=== PATIENT | male | born 1950 | race African-American/Black ===

== ENCOUNTER 2018-01-15 18:35 | Inpatient (IN) | payer MEDICARE ==
[~2018-01-15] VITALS: Ht 182.9 cm; Wt 118.0 kg
--- OUTSIDE RECORDS SUMMARY | 2018-01-15 18:38 | XMS REPORT ---
Author Author [facility] Address Unknown Phone Unavailable Care Team Providers Care Leather Sponger Name Role Phone Unavailable Unavailable Problems This patient has no known problems. Allergies, Adverse Reactions, Alerts This patient has no known allergies or adverse reactions. Medications This patient has no known medications. Encounters Start Date/Time End Date/Time Encounter Type Admission Type Attending [facility] Care Department Encounter ID 2017-07-25 13:39:07 2017-07-25 13:39:07 Outpatient [facility] [id number] 2017-06-30 20:19:00 2017-06-30 20:19:00 Emergency [facility] MED [id number] 2017-04-17 00:00:00 2017-04-17 00:00:00 Outpatient [facility] [id number] 2017-04-05 13:48:32 2017-04-05 13:48:32 Outpatient [facility] [id number]
[2018-01-15] MEDS ORDERED: ASPIRIN 81 MG CHEW TAB PO ONE (19:00)
[2018-01-15 19:10] LABS: BASOPHILS # (AUTO) 0.1 (0.0-0.1); BASOPHILS % 1.1 % (0.0-1.0); EOSINOPHILS % 0.2 % (0.0-6.0); HEMATOCRIT 36.6 % (38.2-49.6); HEMOGLOBIN 11.7 g/dL (14.0-18.0); LYMPHOCYTES # (AUTO) 0.8 (1.0-3.2); LYMPHOCYTES % 12.1 % (18.0-39.1); MEAN CORPUSCULAR HEMOGLOBIN 26.7 pg (28-32); MEAN CORPUSCULAR VOLUME 83.4 fL (81-99); MONOCYTES # (AUTO) 0.5 (0.2-0.8); PLATELET COUNT 233 x10e3/uL (140-360); RED BLOOD COUNT 4.39 x10e6/uL (4.3-5.7); RED CELL DISTRIBUTION WIDTH 17.3 % (11.7-14.4)
[2018-01-15 19:19] LABS: INR 1.59; PROTHROMBIN TIME 17.8 seconds (11.9-14.5)
[2018-01-15 19:28] LABS: ALBUMIN 3.1 g/dL (3.5-5.0); ALBUMIN/GLOBULIN RATIO 0.6 (0.8-2.0); ANION GAP 21.3 mmol/L (8-16); CALCIUM 9.1 mg/dL (8.4-10.2); CREATININE, SERUM 3.01 mg/dL (0.72-1.25); POTASSIUM 3.3 mmol/L (3.5-5.1)
[2018-01-15 19:36] LABS: CREATINE KINASE MB 5.3 ng/mL (0-5.0)
--- NOTE | 2018-01-15 19:53 | Diagnostic Imaging Report ---
EXAMINATION: CHEST SINGLE (PORTABLE) INDICATION: Chest pain. COMPARISON: None FINDINGS: TUBES and LINES: None. LUNGS: Bilateral pulmonary venous congestion. PLEURA: No pleural effusion or pneumothorax. HEART AND MEDIASTINUM: The cardiac silhouette is moderately to markedly enlarged. Enlarged bilateral main pulmonary arteries. BONES AND SOFT TISSUES: No acute osseous lesion. UPPER ABDOMEN: No free air under the diaphragm. IMPRESSION: Congestive heart failure with bilateral pulmonary venous congestion. Signed by: Dr. Bacilio Christina M.D. on 01/15/2018 7:50 PM
--- NOTE | 2018-01-15 19:59 | Diagnostic Imaging Report ---
EXAM: Ultrasound abdomen limited INDICATION: Evaluate for ascites, liver for cirrhosis COMPARISON: None. TECHNIQUE: Transverse and longitudinal images of the 4 quadrants of the abdomen show low evaluate for ascites was performed. FINDINGS: Examination is limited as patient would not lie down due to discomfort. Liver: Appears nodular in contour. Moderate to large volume ascites in the 4 quadrants of the abdomen. IMPRESSION: 1. Moderate to large volume ascites. 2. Partially visualized, nodular hepatic contour. Signed by: Dr. Bacilio Christina M.D. on 01/15/2018 7:55 PM
[2018-01-15] MEDS ORDERED: FUROSEMIDE INJ 10 MG/ML 4 ML VIAL IV ONE (20:15)
[2018-01-15] MEDS ORDERED: TAMSULOSIN HCL0.4 MG PO (20:45)
[2018-01-15] MEDS ORDERED: DOXYCYCLINE HY100 MG PO (20:45)
[2018-01-15] MEDS ORDERED: SPIRONOLACTONE25 MG PO (20:45)
[2018-01-15] MEDS ORDERED: ASPIR 8181 MG PO (20:45)
[2018-01-15] MEDS ORDERED: ATORVASTATIN CA20 MG PO (20:45)
[2018-01-15] MEDS ORDERED: KETOCONAZOLE120 ML (20:45)
[2018-01-15] MEDS ORDERED: METOLAZONE5 MG PO (20:45)
[2018-01-15] MEDS ORDERED: RAMIPRIL5 MG PO (20:45)
[2018-01-15] MEDS ORDERED: SERTRALINE HCL25 MG PO (20:45)
[2018-01-15] MEDS ORDERED: ALLOPURINOL100 MG PO (20:45)
[2018-01-15] MEDS ORDERED: BUMETANIDE1 MG PO (20:45)
[2018-01-15] MEDS ORDERED: METOPROLOL SUCC25 MG PO (20:45)
[2018-01-15] MEDS ORDERED: LORAZEPAM INJ 2 MG/ML VIAL IV ONE (22:00)
[2018-01-15 22:24] LABS: CLARITY,URINE SL CLOUDY (CLEAR); COLOR,URINE YELLOW (YELLOW); LEUKOCYTE ESTERASE ,URINE NEGATIVE (NEGATIVE); NITRITE,URINE NEGATIVE (NEGATIVE); PROTEIN,URINE DIPSTICK 2+ (NEGATIVE)
[2018-01-15 22:25] LABS: BILIRUBIN,URINE 1+ (NEGATIVE); KETONES,URINE NEGATIVE (NEGATIVE); URINE UROBILINOGEN 0.2 mg/dL (0.2 - 1)
[2018-01-15 22:41] LABS: RBC,URINE 21-50 /HPF (0-5)
[2018-01-15 22:42] LABS: AMORPHOUS SEDIMENT,URINE MANY (FEW); BACTERIA,URINE RARE /HPF; EPITHELIAL CELLS,URINE RARE /LPF
[2018-01-15] MEDS: PROPOFOL IV EMULSION 10MG/ML 100 ML IV PRN (23:30)
[2018-01-15] MEDS ORDERED: SUCCINYLCHOLINE 200 MG/10 ML SYR IV STA (23:38)
[2018-01-15] MEDS ORDERED: PROPOFOL IV EMULSION 10MG/ML 100 ML ONE (23:38)
[2018-01-15] MEDS ORDERED: ETOMIDATE 2 MG/ML 10 ML INJ IV STA (23:38)
[2018-01-16] VITALS (120 sets, daily range): BP systolic 62–129; BP diastolic 24–102
--- NOTE | 2018-01-16 00:20 | Diagnostic Imaging Report ---
EXAM: CHEST SINGLE (PORTABLE), AP 1 view INDICATION: Status post intubation COMPARISON: AP view the chest December 15, 2017 FINDINGS: LINES/TUBES: Endotracheal tube terminates approximately 3 cm above the daniel LUNGS: Bilateral vascular congestion PLEURA: No effusions or pneumothorax. HEART AND MEDIASTINUM: Stable enlargement given rotation. BONES AND SOFT TISSUES: No acute findings. IMPRESSION: Interval placement of endotracheal tube that terminates approximately 3 cm above the daniel. Signed by: Dr. Maki Jonas M.D. on 01/16/2018 12:17 AM
[2018-01-16] MEDS: PROPOFOL IV EMULSION 10MG/ML 100 ML IV PRN (05:06)
[2018-01-16 06:39] LABS: CREATINE KINASE MB 4.1 ng/mL (0-5.0)
--- NOTE | 2018-01-16 08:44 | Consultation ---
DATE OF CONSULTATION: REQUESTING PHYSICIAN: Dr. Hoff REASON FOR CONSULTATION: Elevated creatinine. Thank you for allowing us to participate in Mr. Sigala's care. This is a 68-year-old male currently intubated came in with worsening dyspnea, as well as abdominal swelling. Found to have cirrhosis. Currently, is intubated and making very little urine with 80 mg twice daily Lasix. Chest x-ray is also showing fluid overload. Creatinine is about 3. Potassium is slightly low. Blood pressures have been on the low side. It does appear that this may have happened before. Unfortunately, not much history can be obtained. There apparently is a background of CKD, stage 4 based on billing data, but I need to confirm this from records from [facility], which I have requested. PAST HISTORY: Apparently history of cirrhosis, possible CKD, 4, history of fluid overload. In the past, had been on ramipril, spironolactone and Bumex. MEDICATIONS: Currently, please see list. In the past, had been on Bumex, ramipril, spironolactone. ALLERGIES: UNABLE TO OBTAIN. REVIEW OF SYSTEMS: Unable to obtain. FAMILY HISTORY: Unable to obtain as he is intubated. SOCIAL HISTORY: Unable to obtain. PHYSICAL EXAMINATION GENERAL: Laying in ICU bed in no distress. He appears sedated. VITALS: Temperature 96, pulse 72, blood pressure 101/72. CHEST: Scattered crackles. HEENT: Orally intubated. ABDOMEN: Distended. Fluid wave is present. CARDIAC: Normal heart tones. Rhythm sounds good. EXTREMITIES: Plus on the sacrum. NEURO: Appears sedated. Chest x-ray with fluid overload. Last creatinine was 3.1, BUN 53, serum CO2 25, chloride 98, creatinine 3.3, sodium 141. BNP elevated as expected. Globulin is 5. Hemoglobin is 11.7, white count 6.4 and platelets are 233,000. ASSESSMENT: Apparent history of chronic kidney disease, 4, which needs to be confirmed, fluid overload, possible acute kidney injury, mild hypokalemia. Ultrasound not showing any hydronephrosis at this point. Urine is showing some proteinuria and is not bland. There is some hematuria. PLAN: From a renal standpoint, main urgency would be treating the fluid overload so he can breathe better. Will change to Lasix drip. Discussed with staff. Keep low salt intake. Place NG tube. We may need to add some midodrine given the blood pressure issues. Will follow along. Additionally, get records from [facility]. Job#: [id number] KEITH
[2018-01-16] MEDS ORDERED: FUROSEMIDE INJ 10 MG/ML 4 ML VIAL IV SCH (09:00)
[2018-01-16 10:25] LABS: BASOPHILS # (AUTO) 0.1 (0.0-0.1); EOSINOPHILS % 0.4 % (0.0-6.0); HEMATOCRIT 33.1 % (38.2-49.6); HEMOGLOBIN 10.8 g/dL (14.0-18.0); LYMPHOCYTES # (AUTO) 0.9 (1.0-3.2); LYMPHOCYTES % 12.9 % (18.0-39.1); MEAN CORPUSCULAR HEMOGLOBIN 26.5 pg (28-32); MEAN CORPUSCULAR HGB CONC 32.6 g/dL (31-35); MEAN CORPUSCULAR VOLUME 81.3 fL (81-99); MONOCYTES # (AUTO) 0.7 (0.2-0.8); MONOCYTES % 9.8 % (4.4-11.3); NEUTROPHILS # (AUTO) 5.5 (2.1-6.9); NEUTROPHILS % 75.5 % (38.7-80.0); PLATELET COUNT 222 x10e3/uL (140-360); RED BLOOD COUNT 4.07 x10e6/uL (4.3-5.7); RED CELL DISTRIBUTION WIDTH 17.1 % (11.7-14.4)
[2018-01-16 10:39] LABS: ALBUMIN 2.7 g/dL (3.5-5.0); ALBUMIN/GLOBULIN RATIO 0.7 (0.8-2.0); ANION GAP 17.2 mmol/L (8-16); CALCIUM 8.6 mg/dL (8.4-10.2); CREATININE, SERUM 3.21 mg/dL (0.72-1.25); POTASSIUM 3.2 mmol/L (3.5-5.1)
--- NOTE | 2018-01-16 11:17 | Consultation ---
DATE OF CONSULTATION: PULMONARY/CRITICAL CARE CONSULTATION REASON FOR CONSULTATION: ICU management and ventilator management. HPI: Mr. Sigala is a 68-year-old male. The patient is currently sedated, and the source of history is the chart. There is no previous admission here. The ER note suggests the patient was having shortness of breath. He was on BiPAP and became completely agitated, confused and hypoxic. The patient was intubated in the emergency room. He has severe bilateral pedal edema and ascites, which is visible on exam. He has renal failure. Nephrology has already seen the patient. Per the ER report, the patient was at [facility] a few days ago. In the emergency room, the patient had a blood gas per ER physician report; however, I do not see any blood gas in the computer. He was intubated. He was initially placed on BiPAP, and I was told that he was hypercapnic and did not respond, so he was intubated. PAST MEDICAL HISTORY: History of chronic kidney disease, fluid overload. Apparently it appears the patient probably has history of congestive heart failure, and ascites can be due to congestive heart failure versus primary liver problem. INR is 1.59. REVIEW OF SYSTEMS: Unable to elicit. The patient is sedated and intubated. PAST SURGICAL HISTORY: Unknown. FAMILY AND SOCIAL HISTORY: Unknown as the patient is intubated and sedated, and no record is available. PHYSICAL EXAMINATION VITAL SIGNS: Temperature 96.6, pulse of 73, blood pressure 101/72. He is on propofol. Vent settings reviewed. He was on 70% FIO2 with a PEEP of 5. SKIN: Warm and dry. HEENT: Head atraumatic, normocephalic. Pupils are reactive. CHEST: Decreased air entry on the bases. ABDOMEN: Distended. Ascites. EXTREMITIES: Bilateral pedal edema and chronic skin changes, 4+ pedal edema. NEUROLOGIC: Sedated, intubated. LABS: INR is 1.59. Chemistry: Sodium 141, potassium 3.3, chloride 98. BUN 53 and creatinine 3.1. AST and ALT normal. BNP 3589.3. White count of 6.46, hemoglobin 11.7, platelets 233. CHEST X-RAY: I have reviewed the images, showing cardiomegaly, possible left lower lobe infiltrate and pulmonary venous congestion. ASSESSMENT AND PLAN: Mr. Sigala is a 68-year-old male who presented with worsening shortness of breath, hypoxia, possible hypercapnia. There is no ABG in the computer; however, I was given verbal report by the ER. Patient is on mechanical ventilator. Clinical exam and labs suggest the patient probably has congestive heart failure, which is untreated and decompensated. Ascites is likely due to congestive heart failure as the INR is normal and AST and ALT are normal as well. CURRENT PROBLEMS 1. Acute and chronic congestive heart failure, no echocardiogram available. 2. Acute hypoxic respiratory failure. 3. Ascites and bilateral pedal edema. 4. Chronic kidney disease versus [id number] kidney injury. 5. Altered mental status, likely was because of hypoxia in the emergency room. 6. Mild anemia. PLAN 1. Will discontinue propofol and start Versed. 2. Ventilator settings reviewed at bedside. Titrated the FiO2 down to 65%. Patient is saturating 100%. I have increased the PEEP to 8. 3. Will send off endotracheal aspirate. Patient had recent hospitalization. Pneumonia cannot be ruled out. I will start the patient on Zosyn. 4. High likelihood of congestive heart failure on the clinical exam. Will do a stat echocardiogram. Recommend cardiology evaluation. 5. Central line placement. 6. Paracentesis has been requested for the ascites. Will send off the albumin and cell count on the ascitic fluid. 7. Nephrology consultation has been called. The patient is on diuretics and now on Lasix drip. 8. Start the patient on DVT prophylaxis with heparin subcutaneous 5,000 units b.i.d. as patient has renal failure. 9. Start the patient on GI prophylaxis with famotidine. Critical care time spent 50 minutes. Job#: [id number]
[2018-01-16] MEDS ORDERED: MIDAZOLAM HCL 25 MG in DEXTROSE 5% 50ML 45 ML IV PRN (11:30)
[2018-01-16] MEDS: MIDAZOLAM HCL 25 MG in SODIUM CHLORIDE 0.9% 45 ML IV PRN ×3 (12:05→20:41)
--- NOTE | 2018-01-16 13:28 | Diagnostic Imaging Report ---
PROCEDURE:CHEST XRAY LINE PLACEMENT TECHNIQUE:Portable AP chest INDICATION:Line placement COMPARISON:Patients [facility], DX, CHEST SINGLE (PORTABLE), 01/15/2018, 23:59. FINDINGS: See conclusion. CONCLUSION: 1. Right internal jugular central venous catheter with the atrial caval junction. 2. Nasogastric tube tip crossing the diaphragm off the inferior margin of the radiograph. 3. Cardiomegaly with pulmonary edema. No pneumothorax. 4. Trace pleural effusions (left greater than right). 5. Grossly intact skeleton. Dictated by: Olvin Salcedo M.D. on 01/16/2018 at 13:30 Electronically approved by: Olvin Salcedo M.D. on 01/16/2018 at 13:30
--- NOTE | 2018-01-16 13:31 | Diagnostic Imaging Report ---
PROCEDURE:ABDOMEN-1VIEW (KUB) TECHNIQUE:Supine AP abdomen INDICATION:Nasogastric tube placement COMPARISON:None. FINDINGS: See conclusion. CONCLUSION: 1. Nasogastric tube tip at gastric body. 2. Grossly nonobstructive bowel gas pattern. Dictated by: Olvin Salcedo M.D. on 01/16/2018 at 13:32 Electronically approved by: Olvin Salcedo M.D. on 01/16/2018 at 13:32
--- NOTE | 2018-01-16 13:37 | Diagnostic Imaging Report ---
Ultrasound-guided paracentesis 01/16/2018 Pre-Procedure Diagnosis: Symptomatic ascites Post-procedure Diagnosis:Symptomatic ascites Ring Striker: Jem Salcedo Bonderite Operator: None Sedation: None. 1% lidocaine local anesthesia. Estimate blood loss: <5 mL Blood administered: None Complications: None Implants/Grafts: None Specimen: 1200 mL ascites Procedure: Informed consent was obtained and the patient placed supine in the ICU. A time out was performed, followed by four-quadrant preliminary ultrasound of the abdomen. The right lower quadrant was prepped and draped in standard sterile fashion. Using real-time ultrasound guidance a 7-Norwegian one-step centesis needle was advanced into the peritoneal cavity. An image was stored in the electronic medical record. 6050 mL serous fluid was aspirated. At the end of the procedure the catheter was removed and a sterile dressing applied. The patient tolerated the procedure well. No complications. Findings: Large volume ascites. Impression: Successful ultrasound-guided paracentesis with removal of 6050 mL of ascites. Samples were submitted for evaluation if requested by the referring clinician. This report was generated with voice-recognition technology. Errors in contract paralegal can occur. Please interpret accordingly and contact a radiologist if there are any questions regarding the report. Signed by: Dr. Olvin Salcedo M.D. on 01/16/2018 1:33 PM
--- NOTE | 2018-01-16 13:37 | Diagnostic Imaging Report ---
Ultrasound-guided paracentesis 01/16/2018 Pre-Procedure Diagnosis: Symptomatic ascites Post-procedure Diagnosis:Symptomatic ascites Geographic Area Intelligence Officer: Jem Salcedo Smoke And Flame Specialist: None Sedation: None. 1% lidocaine local anesthesia. Estimate blood loss: <5 mL Blood administered: None Complications: None Implants/Grafts: None Specimen: 1200 mL ascites Procedure: Informed consent was obtained and the patient placed supine in the ICU. A time out was performed, followed by four-quadrant preliminary ultrasound of the abdomen. The right lower quadrant was prepped and draped in standard sterile fashion. Using real-time ultrasound guidance a 7-Argentine one-step centesis needle was advanced into the peritoneal cavity. An image was stored in the electronic medical record. 6050 mL serous fluid was aspirated. At the end of the procedure the catheter was removed and a sterile dressing applied. The patient tolerated the procedure well. No complications. Findings: Large volume ascites. Impression: Successful ultrasound-guided paracentesis with removal of 6050 mL of ascites. Samples were submitted for evaluation if requested by the referring clinician. This report was generated with voice-recognition technology. Errors in personnel placement specialist can occur. Please interpret accordingly and contact a radiologist if there are any questions regarding the report. Signed by: Dr. Olvin Salcedo M.D. on 01/16/2018 1:33 PM
--- NOTE | 2018-01-16 14:19 | Diagnostic Imaging Report ---
Non-tunneled Central Venous Catheter Placement 01/16/2018 Pre-Procedure Diagnosis: Multiorgan failure Post-procedure Diagnosis:Multiorgan failure Tree Surgeon: Jem Salcedo Music Mixer: None Sedation: None. 1% lidocaine local anesthesia. Estimate blood loss: <5 mL Blood administered: None Complications: None Implants/Grafts: 16 cm 7-Upper Sorbian 3 lumen CVC Specimen: None Procedure: Informed consent was obtained and the patient positioned supine in the ICU. A timeout was performed, followed by preliminary ultrasound of the right internal jugular vein (see findings below). The right neck was prepped and draped in standard fashion. Using real-time ultrasound guidance a 18 gauge vascular needle was used to access the right internal jugular vein. An image was stored in the electronic medical record. A wire was advanced while monitoring the patient's cardiac rhythm and the needle exchanged for a non-tunneled central venous catheter using standard Salinger technique. At the end of the procedure the catheter was flushed, secured to the skin and a sterile dressing applied. The patient tolerated the procedure well and without immediate complication. Findings: Patent right internal jugular vein as demonstrated by normal ultrasound compressibility. Impression: Successful placement of a non-tunneled right internal jugular central venous catheter using ultrasound guidance. This report was generated with voice-recognition technology. Errors in boilermaker central steam plant can occur. Please interpret accordingly and contact a radiologist if there are any questions regarding the report. Signed by: Dr. Olvin Salcedo M.D. on 01/16/2018 2:16 PM
--- NOTE | 2018-01-16 14:19 | Diagnostic Imaging Report ---
Non-tunneled Central Venous Catheter Placement 01/16/2018 Pre-Procedure Diagnosis: Multiorgan failure Post-procedure Diagnosis:Multiorgan failure Electronic Assembler: Jem Salcedo Customer Operations Intern: None Sedation: None. 1% lidocaine local anesthesia. Estimate blood loss: <5 mL Blood administered: None Complications: None Implants/Grafts: 16 cm 7-Telugu 3 lumen CVC Specimen: None Procedure: Informed consent was obtained and the patient positioned supine in the ICU. A timeout was performed, followed by preliminary ultrasound of the right internal jugular vein (see findings below). The right neck was prepped and draped in standard fashion. Using real-time ultrasound guidance a 18 gauge vascular needle was used to access the right internal jugular vein. An image was stored in the electronic medical record. A wire was advanced while monitoring the patient's cardiac rhythm and the needle exchanged for a non-tunneled central venous catheter using standard Salinger technique. At the end of the procedure the catheter was flushed, secured to the skin and a sterile dressing applied. The patient tolerated the procedure well and without immediate complication. Findings: Patent right internal jugular vein as demonstrated by normal ultrasound compressibility. Impression: Successful placement of a non-tunneled right internal jugular central venous catheter using ultrasound guidance. This report was generated with voice-recognition technology. Errors in lead pastor can occur. Please interpret accordingly and contact a radiologist if there are any questions regarding the report. Signed by: Dr. Olvin Salcedo M.D. on 01/16/2018 2:16 PM
--- NOTE | 2018-01-16 14:23 | Diagnostic Imaging Report ---
Non-tunneled Central Venous Catheter Placement 01/16/2018 Pre-Procedure Diagnosis: Multiorgan failure Post-procedure Diagnosis:Multiorgan failure Study Abroad Coordinator: Jem Salcedo Tan Room Supervisor: None Sedation: None. 1% lidocaine local anesthesia. Estimate blood loss: <5 mL Blood administered: None Complications: None Implants/Grafts: 16 cm 7-Turkmen 3 lumen CVC Specimen: None Procedure: Informed consent was obtained and the patient positioned supine in the ICU. A timeout was performed, followed by preliminary ultrasound of the right internal jugular vein (see findings below). The right neck was prepped and draped in standard fashion. Using real-time ultrasound guidance a 18 gauge vascular needle was used to access the right internal jugular vein. An image was stored in the electronic medical record. A wire was advanced while monitoring the patient's cardiac rhythm and the needle exchanged for a non-tunneled central venous catheter using standard Salinger technique. At the end of the procedure the catheter was flushed, secured to the skin and a sterile dressing applied. The patient tolerated the procedure well and without immediate complication. Findings: Patent right internal jugular vein as demonstrated by normal ultrasound compressibility. Impression: Successful placement of a non-tunneled right internal jugular central venous catheter using ultrasound guidance. This report was generated with voice-recognition technology. Errors in pineapple plantation manager can occur. Please interpret accordingly and contact a radiologist if there are any questions regarding the report. Signed by: Dr. Olvin Salcedo M.D. on 01/16/2018 2:19 PM
[2018-01-16] MEDS: PIPER-TAZ 3.375 GM 50 ML IV SCH ×2 (14:32→20:10)
[2018-01-16] MEDS: FAMOTIDINE 20 MG/2 ML VIAL IV SCH (14:32)
--- NOTE | 2018-01-16 14:32 | Consultation ---
DATE OF CONSULTATION: January 16, 2018 CARDIAC CONSULTATION REASON FOR THE CONSULTATION: Congestive heart failure. HISTORY: Source of information is patient medical record, nursing staff. Patient is intubated, on ventilator. Apparently a 68-year-old gentleman who was recently at another hospital, seems to be [facility]. He was there for several days. He was diagnosed with chronic renal insufficiency, liver cirrhosis and congestive heart failure. He was dismissed on megadose of diuretics. Despite all of that, patient continued to have worsening shortness of breath, marked ascites and edema of the lower extremities. Patient came to this institution yesterday where he was in severe respiratory distress and hypoxemic. He needed to be intubated and placed on ventilator. Patient also had large-volume paracentesis by Interventional Radiology. He had central line. Patient intubated, on ventilator. He was seen by Critical Care/Pulmonary as well as by Renal. Patient was started on IV Lasix drip. His BUN and creatinine at 56 and 3.2. His BNP was elevated at 4350. His chest x-ray was showing cardiomegaly, pulmonary congestion. REVIEW OF SYSTEMS: Unable to get. SOCIAL HISTORY: Patient's sister usually visits him as per staff. He does have good family support. PAST MEDICAL HISTORY 1. Hypertension. 2. Congestive heart failure. 3. Gout. 4. Chronic renal insufficiency. 5. Liver cirrhosis. 6. Morbid obesity. 7. Debility and becoming more and more dependent on family for his care. HOME MEDICATION: Long list including allopurinol 100 mg a day, Lipitor 80 mg a day, aspirin 81 mg a day, Bumex 2 mg t.i.d., Zaroxolyn 2.5 mg a day, Aldactone 25 mg a day, metoprolol XL 25 mg a day, ramipril 2.5 mg a day, Flomax 0.4 mg a day. ALLERGIES: NONE. FAMILY HISTORY: Unable to get. HOSPITAL MEDICATIONS: Following admission, patient is on Zosyn, Lasix IV drip and on ventilator. PHYSICAL EXAMINATION VITAL SIGNS: Height of 5 feet 11 inches, weight of 320 pounds, blood pressure 90/60, heart rate of 70, respiratory rate ventilator rate. HEENT: Patient is sedated, on ventilator, intubated. NECK: Short neck. Difficult to assess jugular venous pulsation. CHEST: Bilateral crackles and rales. HEART: Right and left ventricular heaves are noted with ejection systolic murmur and pansystolic murmur over the left sternal border. ABDOMEN: Marked ascites. EXTREMITIES: Lower extremity marked edema with chronic skin changes. NEUROLOGIC: Patient is intubated, on ventilator. LAB DATA: White blood cell count of 6.5, hemoglobin of 11.7, hematocrit 37%, platelet count of 233,000. BUN of 56, creatinine of 3.2. BNP of 4350. INR of 1.6, PT of 17 seconds, PTT of 34 seconds. Chest x-ray showing cardiomegaly, chronic lung changes. IMPRESSION AND PLAN 1. Multisystem failure. 2. Liver cirrhosis. 3. Congestive heart failure. 4. Chronic renal insufficiency. 5. Debility. 6. Obesity. Patient definitely in respiratory failure. It is multifactorial. Care will be supportive. Will try to get his records from the other hospital if visible. Will review the echocardiogram once it is done. Will continue patient's care and follow up with you. Prognosis is very guarded since patient having this problem for some time; and, furthermore, he was on megadose treatment and he is not improving. Case discussed with the nursing staff. Job#: [id number] HAILEY
[2018-01-16 14:33] LABS: BODY FLUID APPEARANCE SL.CLOUDY; BODY FLUID COLOR YELLOW; BODY FLUID TYPE PERITONEAL
[2018-01-16] MEDS: HEPARIN SOD (PORCINE) 5,000 UNIT/ML VIAL SC SCH ×2 (14:35→20:47)
[2018-01-16 14:42] LABS: GLUCOSE,BODY FLUID 97 mg/dL
[2018-01-16] MEDS ORDERED: SODIUM CHLORIDE 0.9% 250ML 250 ML ONE (14:45)
[2018-01-16 14:46] LABS: ABG HCO3 29 mmol/L (23-28); ABG PCO2 39 mmHg (41-51); ABG PH 7.47 (7.31-7.41); ABG PO2 82 mmHg (80-105)
[2018-01-16 14:52] LABS: RBC,BODY FLUID 141 cells/uL; WBC,BODY FLUID 66 cells/uL
[2018-01-16 15:12] LABS: LYMPHOCYTES,BODY FLUID 9 %; MONO/MACROPHG,BODY FLUID 23 %; NEUTROPHILS,BODY FLUID 68 %
[2018-01-16 15:17] LABS: CREATINE KINASE MB 3.7 ng/mL (0-5.0)
[2018-01-16] MEDS: FUROSEMIDE INJ 100 MG in SODIUM CHLORIDE 0.9% 100 ML 90 ML IV SCH (16:00)
--- NOTE | 2018-01-16 16:55 | Diagnostic Imaging Report ---
EXAM: Renal Ultrasound INDICATION: \S\arf/creatine of 3.01 COMPARISON: None. TECHNIQUE: Transverse and longitudinal images of the kidneys and bladder were obtained. FINDINGS: Right Kidney: Size: 11 cm Echogenicity: Increased Parenchymal thickness: Normal Collecting system: No hydronephrosis Stones: None Cyst/Mass: 10.9 x 7.7 x 10.1 cm anechoic cyst, extending from lateral inferior pole. Left Kidney: Evaluation is limited due to large body habitus and inability to follow breathing instructions. Size: 11.1 cm Echogenicity: Increased Parenchymal thickness: Normal Collecting system: No hydronephrosis Stones: None Cyst/Mass: None Bladder: Collapsed by a Dumas catheter in place. IMPRESSION: 10.9 cm simple appearing exophytic cyst, extending from lateral right inferior pole. Increased renal parenchymal echogenicity, suggestive of medical renal disease. Signed by: Dr. Jose Luis Crews MD on 01/16/2018 4:51 PM
--- NOTE | 2018-01-16 19:45 | History and Physical ---
HISTORY OF PRESENT ILLNESS: This 68-year-old male comes in with shortness of breath and also abdominal pain. The patient came into the emergency room yesterday and was found to have increased abdominal girth, increased shortness of breath. The patient was agitated in the ER and with his agitation getting worse and with respiratory failure getting worse, the patient was intubated and put into the ICU. The patient apparently had pain, given lots of medication from the [facility], according to the ER physician, but he had old prescriptions and failure to take the medications and, therefore, his swelling and edema continued to get worse. The patient comes in with respiratory failure. PAST MEDICAL HISTORY: History of hypertension, history of cirrhosis of the liver, history of chronic renal insufficiency, history of congestive heart failure, history of gout and history of morbid obesity. HOME MEDICATIONS: Zaroxolyn 2.5, metoprolol 25, Ramipril 2.5, Aldactone 25, Bumex 2 mg 3 times a day, atorvastatin 80 mg, allopurinol 100 mg, Flomax 0.4 mg. ALLERGIES: NOT ABLE TO GET. FAMILY HISTORY: Unable to get. REVIEW OF SYSTEMS: Unable to get. The patient is intubated. PHYSICAL EXAMINATION GENERAL: The patient is intubated. VITAL SIGNS: Weight 320 pounds, blood pressure trending in the low 90s/60s. HEENT: Intubated. NECK: No JVD present at this time. CHEST: Bilateral crackles and rales. HEART: Distant. Ejection systolic murmur present in the left sternal border. ABDOMEN: Umbilical hernia with marked ascites and fluid thrill. EXTREMITIES: Lower extremity edema with chronic trophic changes and also onychomycosis. NEUROLOGIC: Unable to assess. The patient is intubated. LABORATORY DATA: Initial white count was 6.46, hemoglobin 11.7, hematocrit 36.6. No left shift present. Lymphocytes 12.2. Chemistry: Sodium 140, potassium 3.2, BUN 56 with creatinine of 3.2. CK was elevated. Troponins have been low trending. BNP was 4354. Albumin, globulin and alkaline was 0.7. Immunologically, CANDACE screen is pending. Antimicrobial antibody is also pending. PT 17.89, INR 1.5. Urine did show some rare bacteria, nitrite negative and blood was 2 positive. The patient had a tap today and fluid was yellow, cloudy. White count was 66. RBCs 141. Neutrophil count was 68. LDH was 103 and glucose was 97. Culture is pending. ASSESSMENT: 1. Nulyv-kw-[id number] congestive heart failure. 2. Cirrhosis of the liver. 3. Acute respiratory failure, hypoxic. 4. Acute kidney injury on chronic kidney injury. 5. Altered mental status changes. 6. Anemia. 7. History of gout and hypertension. PLAN: Continue with current medication. The patient has been started on Zosyn. Clinical setting as per critical care and pulmonology. The patient's echocardiogram has been run. Will go ahead and review it. Central line placement has been done. Paracentesis has been done. Nephrology consult has put the patient on IV Lasix drip. DVT prophylaxis has also been done, although his INR is 1.2, so will have to watch his INR. GI prophylaxis has also been ordered. Further recommendations depending on clinical course. Will continue to monitor the patient and will try to get in touch with the family to get more records and more history from him. Job#: [id number]
[2018-01-17] VITALS (104 sets, daily range): BP systolic 67–132; BP diastolic 30–103
[2018-01-17] MEDS: MIDAZOLAM HCL 25 MG in SODIUM CHLORIDE 0.9% 45 ML IV PRN ×3 (03:14→14:31)
[2018-01-17] MEDS: PIPER-TAZ 3.375 GM 50 ML IV SCH ×3 (05:01→21:56)
[2018-01-17 06:10] LABS: BASOPHILS # (AUTO) 0.1 (0.0-0.1); BASOPHILS % 0.6 % (0.0-1.0); EOSINOPHILS % 0.2 % (0.0-6.0); HEMATOCRIT 33.2 % (38.2-49.6); HEMOGLOBIN 10.7 g/dL (14.0-18.0); LYMPHOCYTES # (AUTO) 0.6 (1.0-3.2); LYMPHOCYTES % 6.7 % (18.0-39.1); MEAN CORPUSCULAR HEMOGLOBIN 26.3 pg (28-32); MEAN CORPUSCULAR HGB CONC 32.2 g/dL (31-35); MEAN CORPUSCULAR VOLUME 81.6 fL (81-99); MONOCYTES # (AUTO) 0.7 (0.2-0.8); MONOCYTES % 7.2 % (4.4-11.3); NEUTROPHILS # (AUTO) 7.7 (2.1-6.9); PLATELET COUNT 215 x10e3/uL (140-360); RED BLOOD COUNT 4.07 x10e6/uL (4.3-5.7); RED CELL DISTRIBUTION WIDTH 17.1 % (11.7-14.4)
[2018-01-17 06:32] LABS: ALBUMIN 2.3 g/dL (3.5-5.0); ALBUMIN/GLOBULIN RATIO 0.6 (0.8-2.0); ANION GAP 16.8 mmol/L (8-16); CALCIUM 8.4 mg/dL (8.4-10.2); CREATININE, SERUM 3.18 mg/dL (0.72-1.25); MAGNESIUM 1.4 MG/DL (1.3-2.1); PHOSPHORUS 4.8 MG/DL (2.3-4.7)
[2018-01-17 06:38] LABS: POTASSIUM 2.8 mmol/L (3.5-5.1)
[2018-01-17] MEDS ORDERED: POTASSIUM CHL 40 MEQ in SODIUM CHLORIDE 0.9% 250ML 230 ML IV PRN (07:00)
[2018-01-17] MEDS ORDERED: POTASSIUM CHLORIDE 10MEQ/100ML 400 ML INJ PRN (07:00)
[2018-01-17] MEDS: POTASSIUM CHLORIDE 20MEQ/100ML 200 ML IV PRN ×2 (07:34→18:28)
[2018-01-17] MEDS ORDERED: FUROSEMIDE INJ 10 MG/ML 10 ML VIAL ONE (08:09)
[2018-01-17] MEDS ORDERED: SODIUM CHLORIDE 0.9% 50ML 0 ML ONE (08:10)
[2018-01-17] MEDS: FAMOTIDINE 20 MG/2 ML VIAL IV SCH (08:12)
[2018-01-17] MEDS: HEPARIN SOD (PORCINE) 5,000 UNIT/ML VIAL SC SCH ×2 (08:17→21:56)
[2018-01-17] MEDS: MUPIROCIN 2% OINT 22 GM TUBE TOP SCH (08:25)
[2018-01-17] MEDS: FUROSEMIDE INJ 100 MG in SODIUM CHLORIDE 0.9% 100 ML 90 ML IV SCH (08:25)
[2018-01-17] MEDS ORDERED: ALBUMIN 5% 250ML IV ONE (10:15)
[2018-01-17] MEDS ORDERED: ALBUMIN 5% 1,000 ML IV ONE (10:30)
[2018-01-17] MEDS ORDERED: METOCLOPRAMIDE HCL 10 MG/2ML VIAL ONE (10:44)
--- NOTE | 2018-01-17 14:22 | Diagnostic Imaging Report ---
PROCEDURE: A single AP view of the chest. COMPARISON: Chest radiograph 01/16/2018. INDICATIONS: INTUBATED FINDINGS: See impression. IMPRESSION: 1. Lines: * ET tube tip projects approximately 2 cm above the daniel. * Right internal jugular central venous catheter projects over the upper right atrium. * Nasogastric tube tip courses below the diaphragm, extending out of the field of view. 2. Cardiomegaly with pulmonary edema. No pneumothorax. 3. Stable trace pleural effusions, left greater than right. Dictated by: Prasanna Saleh M.D. on 01/17/2018 at 14:23 Electronically approved by: Prasanna Saleh M.D. on 01/17/2018 at 14:23
[2018-01-17 15:08] LABS: CLARITY,URINE CLEAR (CLEAR); COLOR,URINE YELLOW (YELLOW); LEUKOCYTE ESTERASE ,URINE NEGATIVE (NEGATIVE); NITRITE,URINE NEGATIVE (NEGATIVE)
[2018-01-17 15:09] LABS: BILIRUBIN,URINE NEGATIVE (NEGATIVE); EPITHELIAL CELLS,URINE FEW /LPF; KETONES,URINE NEGATIVE (NEGATIVE); PROTEIN,URINE DIPSTICK TRACE (NEGATIVE); RBC,URINE 0-5 /HPF (0-5); URINE UROBILINOGEN 0.2 mg/dL (0.2 - 1); WBC,URINE (MAN) 0-5 /HPF (0-5)
[2018-01-17 15:10] LABS: MUCUS,URINE FEW (RARE)
[2018-01-18] VITALS (93 sets, daily range): BP systolic 67–133; BP diastolic 48–96
[2018-01-18] MEDS: FUROSEMIDE INJ 100 MG in SODIUM CHLORIDE 0.9% 100 ML 90 ML IV SCH ×2 (03:00→04:00)
[2018-01-18] MEDS: MIDAZOLAM HCL 25 MG in SODIUM CHLORIDE 0.9% 45 ML IV PRN ×4 (04:50→09:27)
[2018-01-18] MEDS: PIPER-TAZ 3.375 GM 50 ML IV SCH ×3 (04:50→20:30)
[2018-01-18 06:18] LABS: BASOPHILS # (AUTO) 0.1 (0.0-0.1); BASOPHILS % 0.6 % (0.0-1.0); EOSINOPHILS # (AUTO) 0.1 (0.0-0.4); EOSINOPHILS % 0.8 % (0.0-6.0); HEMATOCRIT 33.7 % (38.2-49.6); HEMOGLOBIN 10.8 g/dL (14.0-18.0); LYMPHOCYTES # (AUTO) 0.7 (1.0-3.2); LYMPHOCYTES % 7.8 % (18.0-39.1); MEAN CORPUSCULAR HEMOGLOBIN 26.7 pg (28-32); MEAN CORPUSCULAR VOLUME 83.2 fL (81-99); MONOCYTES # (AUTO) 0.7 (0.2-0.8); MONOCYTES % 8.1 % (4.4-11.3); NEUTROPHILS # (AUTO) 7.4 (2.1-6.9); NEUTROPHILS % 82.3 % (38.7-80.0); PLATELET COUNT 199 x10e3/uL (140-360); RED BLOOD COUNT 4.05 x10e6/uL (4.3-5.7); RED CELL DISTRIBUTION WIDTH 17.3 % (11.7-14.4)
[2018-01-18] MEDS ORDERED: POTASSIUM CHLORIDE 20MEQ/100ML 200 ML IV ONE (06:45)
[2018-01-18 06:55] LABS: CALCIUM 8.8 mg/dL (8.4-10.2); CREATININE, SERUM 3.09 mg/dL (0.72-1.25)
[2018-01-18 07:10] LABS: MAGNESIUM 1.4 MG/DL (1.3-2.1); PHOSPHORUS 3.9 MG/DL (2.3-4.7)
--- NOTE | 2018-01-18 07:56 | Diagnostic Imaging Report ---
EXAM: CHEST SINGLE (PORTABLE) 01/18/2018 at 6:23 AM INDICATION: Dyspnea COMPARISON: 01/17/2018 FINDINGS: Single portable AP view of the chest. Visualized bones, soft tissues and cardiomediastinal silhouette appear unchanged. IMPRESSION: 1. Lines/tubes: Right IJ central line, endotracheal tube and nasogastric tube are again noted remaining in appropriate position. 2. Heart is enlarged. There is slight improvement in the pulmonary edema. Left pleural effusion again noted. Signed by: Dr. Trung Mckenzie DO on 01/18/2018 7:53 AM
[2018-01-18] MEDS: FAMOTIDINE 20 MG/2 ML VIAL IV SCH (09:01)
[2018-01-18] MEDS: HEPARIN SOD (PORCINE) 5,000 UNIT/ML VIAL SC SCH ×2 (09:01→20:30)
[2018-01-18] MEDS: GENTAMICIN SULFATE 0.3% OP 5 ML BTL OP SCH ×3 (09:01→23:00)
[2018-01-18] MEDS: MUPIROCIN 2% OINT 22 GM TUBE TOP SCH (09:01)
[2018-01-18] MEDS ORDERED: SODIUM CHLORIDE 0.9% 250ML 250 ML ONE (09:05)
[2018-01-18 16:09] LABS: ABG HCO3 31 mmol/L (23-28); ABG PCO2 41 mmHg (41-51); ABG PH 7.48 (7.31-7.41); ABG PO2 68 mmHg (80-105)
[2018-01-18] MEDS ORDERED: HYDROMORPHONE 20MG/ NS 100ML IV SCH (16:45)
[2018-01-18] MEDS ORDERED: HYDROMORPHONE 100 ML IV PRN (17:00)
[2018-01-19] VITALS (101 sets, daily range): BP systolic 75–117; BP diastolic 48–95
[2018-01-19 00:20] LABS: ANION GAP 19.4 mmol/L (8-16); CREATININE, SERUM 3.04 mg/dL (0.72-1.25); MAGNESIUM 1.3 MG/DL (1.3-2.1); PHOSPHORUS 3.5 MG/DL (2.3-4.7); POTASSIUM 3.4 mmol/L (3.5-5.1)
[2018-01-19] MEDS: PIPER-TAZ 3.375 GM 50 ML IV SCH ×3 (04:50→20:04)
[2018-01-19] MEDS: GENTAMICIN SULFATE 0.3% OP 5 ML BTL OP SCH ×3 (05:30→22:00)
[2018-01-19 05:59] LABS: BASOPHILS # (AUTO) 0.1 (0.0-0.1); BASOPHILS % 0.5 % (0.0-1.0); EOSINOPHILS # (AUTO) 0.1 (0.0-0.4); EOSINOPHILS % 0.7 % (0.0-6.0); HEMATOCRIT 35.3 % (38.2-49.6); HEMOGLOBIN 11.1 g/dL (14.0-18.0); LYMPHOCYTES # (AUTO) 0.8 (1.0-3.2); MEAN CORPUSCULAR HEMOGLOBIN 26.4 pg (28-32); MEAN CORPUSCULAR HGB CONC 31.4 g/dL (31-35); MONOCYTES # (AUTO) 0.8 (0.2-0.8); MONOCYTES % 7.8 % (4.4-11.3); NEUTROPHILS # (AUTO) 8.2 (2.1-6.9); NEUTROPHILS % 82.6 % (38.7-80.0); PLATELET COUNT 212 x10e3/uL (140-360); RED CELL DISTRIBUTION WIDTH 17.8 % (11.7-14.4)
--- NOTE | 2018-01-19 06:15 | Diagnostic Imaging Report ---
EXAM: CHEST SINGLE (PORTABLE), AP 1 view INDICATION: Intubated COMPARISON: AP view of the chest January 18, 2018 FINDINGS: LINES/TUBES: Stable position of endotracheal tube, nasal/orogastric tube and right subclavian central line. LUNGS: Persistent pulmonary edema and bibasilar atelectasis. PLEURA: Bilateral layering pleural effusions. HEART AND MEDIASTINUM: Stable enlargement. BONES AND SOFT TISSUES: No acute findings. IMPRESSION: No interval change. Signed by: Dr. Maki Jonas M.D. on 01/19/2018 6:12 AM
[2018-01-19 06:18] LABS: MAGNESIUM 1.3 MG/DL (1.3-2.1); PHOSPHORUS 3.8 MG/DL (2.3-4.7)
[2018-01-19 06:28] LABS: ALBUMIN 2.4 g/dL (3.5-5.0); ALBUMIN/GLOBULIN RATIO 0.6 (0.8-2.0); CALCIUM 8.8 mg/dL (8.4-10.2); CREATININE, SERUM 2.99 mg/dL (0.72-1.25)
[2018-01-19] MEDS ORDERED: POTASSIUM CHLORIDE 20MEQ/100ML 100 ML IV ONE (07:00)
[2018-01-19] MEDS: FAMOTIDINE 20 MG/2 ML VIAL IV SCH (08:42)
[2018-01-19] MEDS: HEPARIN SOD (PORCINE) 5,000 UNIT/ML VIAL SC SCH ×2 (08:42→21:10)
[2018-01-19] MEDS: MUPIROCIN 2% OINT 22 GM TUBE TOP SCH (09:25)
[2018-01-19] MEDS ORDERED: POTASSIUM CHLORIDE 20MEQ/100ML 200 ML IV ONE (09:45)
[2018-01-19 15:29] LABS: ALPHA 2 GLOBULIN URINE PEP 7.6 % (.)
--- NOTE | 2018-01-19 18:04 | Consultation ---
DATE OF CONSULTATION: January 19, 2018 HISTORY OF PRESENT ILLNESS: The patient is intubated and sedated. There are no family members at the bedside. Mr. Sigala's emergency contact, his sister, Eliza Le, is unavailable by phone at the time of this evaluation. History is obtained from review of the electronic medical record. Mr. Sigala presented to the emergency center at [facility] on January 15, 2018 with worsening shortness of breath, increased abdominal girth, and abdominal pain. While in the emergency center, the patient was placed on BiPAP. However, the patient subsequently became agitated, confused, and hypoxic. The patient was intubated and admitted to the intensive care unit for further evaluation and treatment. While in the intensive care unit, the patient was evaluated by nephrology. The bell attendant discontinued the previously ordered Lasix 80 mg IV twice daily, and replaced it with a continuous Lasix infusion to treat volume overload. Mr. Sigala was seen by a pulmonary/deaf/hard of hearing specialist who discontinued propofol and replaced it with a continuous infusion of hydromorphone for sedation, prescribed Zosyn for possible pneumonia, ordered an echocardiogram and recommended a cardiology consultation, arranged for paracentesis for ascites, and prescribed DVT and GI prophylaxis. The patient was seen by cardiology as well. The office equipment mechanic reviewed the patient's echocardiogram and has made recommendations regarding the patient's cardiac medications. Sedation with hydromorphone was discontinued at 7 a.m. on January 19, 2018. Shortly after sedation was discontinued, the patient's nurse examined him. His pupils were found to be 2 mm and fixed. The patient was unresponsive to verbal and noxious stimulation. A neurology consultation was placed for prognosis. REVIEW OF SYSTEMS: Unable to obtain secondary to the patient being intubated and sedated. PAST MEDICAL HISTORY: Hypertension, congestive heart failure, gout, chronic kidney disease stage IV, cirrhosis. PAST SURGICAL HISTORY: Unable to obtain secondary to the patient being intubated and sedated. PAST HOSPITALIZATIONS: Unable to obtain secondary to patient being intubated and sedated. FAMILY HISTORY: Unable to obtain secondary to the patient being intubated and sedated. SOCIAL HISTORY: Mr. Sigala is single. He is not employed at this time. No other social history could be obtained secondary to the patient being intubated and sedated. HOME MEDICATIONS: Allopurinol 100 milligrams by mouth daily, aspirin 81 mg by mouth daily, atorvastatin 80 mg by mouth at bedtime daily, bumetanide 2 milligrams by mouth three times daily, doxycycline 100 milligrams by mouth daily, metolazone 2.5 mg by mouth daily, metoprolol 25 mg by mouth daily, Ramipril 2.5 mg by mouth daily, sertraline 25 mg by mouth daily, spironolactone 25 mg by mouth daily, and tamsulosin 0.4 milligrams by mouth daily. ALLERGIES: NO KNOWN DRUG ALLERGIES. NO KNOWN FOOD ALLERGIES. NO KNOWN ALLERGY TO LATEX. NO KNOWN ALLERGY TO IODINE OR OTHER CONTRAST MATERIALS. PHYSICAL EXAMINATION: VITAL SIGNS: Height 72 inches. Weight 271 pounds. BMI 36.8 kilograms per meter squared. Blood pressure 98/76 mm Hg and pulse 109 beats per minute. Respiratory rate 16 breaths per minute. Ventilator settings are as follows: Oxygen concentration of 40%. PEEP 5 cm of water. Respiratory rate 16 breaths per minute. Tidal volume 500 mL. GENERAL: Intubated, sedated. Opens eyes intermittently to verbal stimuli. Obese. HEENT: Normocephalic, atraumatic. Pupils are equal, round and reactive to light. Moist mucous membranes. NECK: Supple. No appreciable thyromegaly. No appreciable carotid bruits. CARDIOVASCULAR: S1, S2, tachycardiac. No murmurs, rubs or gallops. The patient is on a continuous Dopamine infusion to support his blood pressure. RESPIRATORY: Intubated, mechanically ventilated. Mild inspiratory and expiratory wheezes and fine rhonchi are auscultated throughout. EXTREMITIES: The skin is warm and dry with the exception of the left hand and forearm which are slightly cool to the touch. No clubbing, cyanosis or edema. The posterior tibial and dorsalis pedis pulses are trace and symmetric. SKIN: No rashes. Venous stasis ulcerations over the forelegs. The right foreleg is wrapped in gauze. NEUROLOGIC: MEMORY/ATTENTION: Intubated, sedated. Opens eyes intermittently to verbal stimuli. Cranial Nerves: Pupils are equal and round, briskly reactive to light (3 mm to 2 mm). There are weak bilateral corneal reflexes. Ocular, cephalic and gag reflexes are intact. Face appears symmetric. Strength: The patient moves all 4 extremities spontaneously and equally. Normal tone. Sensation: Appears grossly intact. Cerebellar: Unable to assess secondary to the patient being intubated and sedated. Gait: Unable to assess secondary to patient being intubated and sedated. Speech: Unable to assess secondary to the patient being intubated. Involuntary Movements: None. Pronator Drift: As per motor exam. LABORATORY DATA: Sodium 145, potassium 3.0, chloride 102, carbon dioxide 31, anion gap 15. BUN 58, creatinine 2.99. Estimated GFR 26. BUN to creatinine ratio 19. Glucose 106. Calcium 8.4. Total bilirubin 2.4. AST 23. ALT 12. Alkaline phosphatase 46. Total protein 6.6. Albumin 2.4. Globulin 4.2. Albumin to globulin ratio is 0.6. Ammonia level from January 18, 2018 was 60, from January 16, 2018 creatinine kinase was 288. CK-MB was 3.70. Troponin I was 0.061. From January 24, 2018, creatinine kinase 317, 288. CK-MB 4.10, 3.7. Troponin I is 0.059, 0.061. B-natriuretic peptide was 3589.3 on January 15, 2018. B-natriuretic peptide was 4354.3 on January 16, 2018. The CBC with differential and platelets reveals a white blood cell count of 9.95 with a left shift with 82.6% neutrophils and 8.0% lymphocytes and 7.8% monocytes, 0.7% eosinophils, 0.5% basophils. Hemoglobin and hematocrit are 11.1 and 35.3, respectively. The platelet count is 212,000. From 01/15/2018, PT 17.8, INR 1.59, PTT 34.0. Arterial blood gas from 01/18/2018, pH 7.48. PCO2 41. PO2 68. Bicarbonate 31. Oxygen saturation 95.0, base excess of 7.0. FIO2 40. Urinalysis from January 17, 2018 revealed trace protein and 2+ blood, but was otherwise unremarkable. CANDACE screen negative. Antimitochondrial antibody 7.6 (negative). Hepatitis A IgM antibody negative. Hepatitis B surface antigen negative. Hepatitis B core IgM antibody negative. Hepatitis C antibody 0.1 (negative). Evaluation of peritoneal fluid from paracentesis on January 16, 2018, demonstrated the fluid to be yellow in color, slightly cloudy with a white blood cell count of 66, red blood cell count 141,total cell count of 100, neutrophils 68, lymphocytes 9, monocytes 23, glucose 97, LDH 103. DIAGNOSTIC STUDIES: Chest x-ray on 01/19/2018: Stable position of endotracheal tube, nasal/oral gastric tube, and right subclavian central line. Persistent pulmonary edema and bibasilar atelectasis. Bilateral layering pleural effusions. Stable enlargement of the heart and mediastinum. No acute findings regarding the bones or soft tissues. Echocardiogram 01/16/2018: There is diminished left ventricular systolic function with an ejection fraction of 20% to 25%. There is severe global hypokinesis of the left ventricle. Left ventricle was markedly dilated. Left atrium is enlarged. The right ventricle due is severely enlarged. Right ventricular systolic function is severely impaired. The right atrium is enlarged. There is mild aortic regurgitation. There is mild mitral regurgitation. There is moderate tricuspid regurgitation. ASSESSMENT AND PLAN: Mr. Sigala is a 68-year-old man with multiple medical comorbidities admitted to [facility] with acute respiratory failure, ascites, cirrhosis, acute on chronic kidney failure, and acute on chronic heart failure. Neurologically, the patient intermittently opens his eyes to verbal stimulation. His brain stem reflexes are intact. Mr. Sigala moves all four extremities equally and symmetrically. The patient's laboratory data and other diagnostic studies have been reviewed and are documented above. As stated in the history of present illness, sedation with continuous hydromorphone infusion was discontinued at 7 a.m. on January 19, 2018, the day of this evaluation. Mr. Sigala continues to have hydromorphone in his system, especially in light of his renal and liver dysfunction. Therefore, an accurate neurologic examination cannot be obtained secondary to residual sedation. However, Mr. Sigala is intermittently opening his eyes to verbal stimuli. His brain stem reflexes are intact. The patient moves all 4 extremities spontaneously and equally. These are hopeful signs in regards to his neurological prognosis. However, given the multi-organ failure, his overall prognosis is guarded. It is recommended the patient be monitored over the next few days for further neurological improvement. It is possible, once the patient is weaned from pressors, an MRI of the brain without contrast may be ordered to evaluate for anoxic ischemic brain injury. Thank you for this consultation. I will continue to follow this patient while he remains in the hospital. TIME SPENT: 70 minutes Job#: [id number] MTDD
[2018-01-19] MEDS ORDERED: IBUPROFEN 100 MG/5 ML SUSP NG PRN (18:15)
[2018-01-19] MEDS: FUROSEMIDE INJ 100 MG in SODIUM CHLORIDE 0.9% 100 ML 90 ML IV SCH (19:00)
[2018-01-20] VITALS (105 sets, daily range): BP systolic 50–122; BP diastolic 29–95
[2018-01-20] MEDS: PIPER-TAZ 3.375 GM 50 ML IV SCH ×3 (04:00→20:00)
[2018-01-20] MEDS: GENTAMICIN SULFATE 0.3% OP 5 ML BTL OP SCH ×3 (06:01→22:00)
[2018-01-20 06:11] LABS: ANION GAP 16.4 mmol/L (8-16); CALCIUM 8.7 mg/dL (8.4-10.2); CREATININE, SERUM 2.97 mg/dL (0.72-1.25); POTASSIUM 3.4 mmol/L (3.5-5.1)
[2018-01-20 06:35] LABS: MAGNESIUM 1.2 MG/DL (1.3-2.1); PHOSPHORUS 3.8 MG/DL (2.3-4.7)
--- NOTE | 2018-01-20 06:45 | Diagnostic Imaging Report ---
EXAM: CHEST SINGLE (PORTABLE), AP 1 view INDICATION: Intubated COMPARISON: AP view the chest January 19, 2018 FINDINGS: LINES/TUBES: Stable position of endotracheal tube. Stable position of right internal jugular vein central line. Nasogastric tube is now deviated towards the right, which may be positional. LUNGS: Persistent pulmonary edema and bibasilar atelectasis. PLEURA: Bilateral layering pleural effusions. HEART AND MEDIASTINUM: Marked enlargement. BONES AND SOFT TISSUES: No acute findings. IMPRESSION: The nasal/orogastric tube is now deviated towards the right in its middle aspect. This may be positional. Repeat AP view of the chest is recommended with straightening view. Signed by: Dr. Maki Jonas M.D. on 01/20/2018 6:41 AM
[2018-01-20] MEDS: FAMOTIDINE 20 MG/2 ML VIAL IV SCH (08:26)
[2018-01-20] MEDS: HEPARIN SOD (PORCINE) 5,000 UNIT/ML VIAL SC SCH ×2 (08:27→21:00)
[2018-01-20] MEDS: MUPIROCIN 2% OINT 22 GM TUBE TOP SCH (08:28)
[2018-01-20] MEDS: POTASSIUM CHLORIDE 20MEQ/100ML 200 ML IV PRN (08:35)
[2018-01-20] MEDS ORDERED: MAGNESIUM SULFATE 2GM/50ML 50 ML IV SCH (11:30)
[2018-01-20] MEDS: NOREPINEPHRINE INJ 4MG/4ML 8 MG in DEXTROSE 5% 250ML 250 ML IV SCH (11:30)
[2018-01-20] MEDS ORDERED: VANCOMYCIN 750MG/NS 150ML IVPB 150 ML IV SCH (11:45)
[2018-01-20] MEDS: FUROSEMIDE INJ 100 MG in SODIUM CHLORIDE 0.9% 100 ML 90 ML IV SCH ×2 (15:00→17:45)
[2018-01-20] MEDS ORDERED: SODIUM CHLORIDE 0.9% 250ML 250 ML ONE (20:36)
[2018-01-21] VITALS (90 sets, daily range): BP systolic 74–130; BP diastolic 49–120
[2018-01-21] MEDS: PIPER-TAZ 3.375 GM 50 ML IV SCH (03:58)
--- NOTE | 2018-01-21 06:22 | Diagnostic Imaging Report ---
EXAM: CHEST SINGLE (PORTABLE), AP 1 view INDICATION: Shortness of breath COMPARISON: AP view of the chest January 20, 2018 FINDINGS: LINES/TUBES: Stable position of endotracheal tube, right subclavian line and partially visualized nasal/orogastric tube LUNGS: Limited evaluation of the lungs, likely no interval change PLEURA: Possible bilateral pleural effusions HEART AND MEDIASTINUM: Stable cardiac enlargement and enlargement of the pulmonary arteries. BONES AND SOFT TISSUES: No acute findings. IMPRESSION: Very limited view of the chest. Likely no interval change. Signed by: Dr. Maki Jonas M.D. on 01/21/2018 6:18 AM
[2018-01-21 06:42] LABS: ALBUMIN/GLOBULIN RATIO 0.5 (0.8-2.0); ANION GAP 16.8 mmol/L (8-16); CALCIUM 8.7 mg/dL (8.4-10.2); CREATININE, SERUM 3.71 mg/dL (0.72-1.25); POTASSIUM 3.8 mmol/L (3.5-5.1)
[2018-01-21 06:59] LABS: MAGNESIUM 1.3 MG/DL (1.3-2.1); PHOSPHORUS 4.1 MG/DL (2.3-4.7)
[2018-01-21] MEDS: GENTAMICIN SULFATE 0.3% OP 5 ML BTL OP SCH ×3 (07:00→22:28)
[2018-01-21] MEDS: METOLAZONE 5 MG TAB PO SCH (09:30)
[2018-01-21] MEDS ORDERED: MEROPENEM 500MG 500 MG in SODIUM CHLORIDE 0.9% 50ML 50 ML IV SCH (09:45)
[2018-01-21] MEDS: FAMOTIDINE 20 MG/2 ML VIAL IV SCH (10:45)
[2018-01-21] MEDS: HEPARIN SOD (PORCINE) 5,000 UNIT/ML VIAL SC SCH ×2 (10:45→22:28)
[2018-01-21] MEDS: MEROPENEM 500 MG VIAL IV SCH (10:46)
[2018-01-21] MEDS: MUPIROCIN 2% OINT 22 GM TUBE TOP SCH (10:46)
[2018-01-21] MEDS ORDERED: VANCOMYCIN 1GM/NS 250 ML 250 ML IV ONE (11:30)
[2018-01-21 11:50] LABS: ABG PH 7.43 (7.31-7.41)
[2018-01-21 11:51] LABS: ABG HCO3 33 mmol/L (23-28); ABG PCO2 49 mmHg (41-51); ABG PO2 103 mmHg (80-105)
[2018-01-21] MEDS: NOREPINEPHRINE INJ 4MG/4ML 8 MG in DEXTROSE 5% 250ML 250 ML IV SCH (14:00)
--- NOTE | 2018-01-21 14:38 | Consultation ---
DATE OF CONSULTATION: INFECTIOUS DISEASE CONSULTATION REASON FOR CONSULTATION: Sepsis. Thank you so much for asking me to see this patient. HISTORY OF PRESENT ILLNESS: This patient is a 68-year-old male who is currently in the intensive care, intubated. The patient was admitted on January 15, and I was asked to see him today, January 21. He is a 68-year-old gentleman who apparently was in [facility] recently. At that time, he was diagnosed with chronic kidney disease, liver cirrhosis, congestive heart failure. He was discharged on diuretics. The patient comes back here with shortness of breath, ascites, significant bilateral lower extremity edema. So, patient came to the emergency room where he was evaluated, admitted, intubated. He was seen by Critical Care, Cardiology, and Infectious Disease was consulted today. The patient is currently intubated, sedated, and history was taken mainly from the chart. He does not really provide any meaningful information. I was asked to see him today because a blood culture was positive. PAST MEDICAL HISTORY: Hypertension, congestive heart failure, gout, chronic kidney disease, liver cirrhosis, obesity, debilitated. PAST SURGICAL HISTORY: Not available. ALLERGIES: NKA. SOCIAL HISTORY: Currently there is no smoking, drug abuse, alcohol abuse. FAMILY HISTORY: Noncontributory. Could not be obtained. I have reviewed all the consults here. His laboratory data reviewed. His white count is 9.95, hemoglobin 11, hematocrit 35. Sodium 133, potassium 3.8, creatinine 3.7. His blood cultures show gram-positive cocci. PHYSICAL EXAMINATION GENERAL: He is currently sedated. VITAL SIGNS: Stable. Currently afebrile. HEENT: He does not appear icteric. NECK: Supple. CHEST: Clear bilaterally. HEART: S1 and S2. No S3 or S4, no murmur. ABDOMEN: Soft. IMPRESSION 1. Sepsis. 2. Bacteremia. Could be a line infection. I am not so sure at the present time. When I first got the consult, it was not really sure what kind of bacteria he has; but now I am looking at it, it is gram-positive cocci. I gave him a gram of vancomycin, which will be on board for a while. If he is on dialysis, needs to be renewed after dialysis. 3. Congestive heart failure. 4. Liver cirrhosis, which etiology is being investigated. 5. Depending on the bacteria, further recommendations to follow. 6. Respiratory failure, on a ventilator. Will follow with you. Job#: [id number] EV
[2018-01-21] MEDS: FUROSEMIDE INJ 100 MG in SODIUM CHLORIDE 0.9% 100 ML 90 ML IV SCH (15:08)
[2018-01-21] MEDS: DEXMEDETOMIDINE HCL 200 MCG in SODIUM CHLORIDE 0.9% 50ML 48 ML IV PRN ×2 (17:30→21:30)
[2018-01-22] VITALS (95 sets, daily range): BP systolic 74–116; BP diastolic 53–99
[2018-01-22] MEDS: DEXMEDETOMIDINE HCL 200 MCG in SODIUM CHLORIDE 0.9% 50ML 48 ML IV PRN ×6 (02:00→19:10)
[2018-01-22] MEDS: IBUPROFEN 100 MG/5 ML SUSP NG PRN ×2 (02:37→21:00)
[2018-01-22] MEDS: FUROSEMIDE INJ 100 MG in SODIUM CHLORIDE 0.9% 100 ML 90 ML IV SCH (03:18)
--- NOTE | 2018-01-22 06:13 | Diagnostic Imaging Report ---
EXAM: CHEST SINGLE (PORTABLE), AP 1 view INDICATION: Intubated COMPARISON: AP view of the chest January 21, 2018 FINDINGS: LINES/TUBES: Stable endotracheal tube and nasal/orogastric tube and right subclavian line LUNGS: Vascular congestion/edema PLEURA: Bilateral pleural effusions HEART AND MEDIASTINUM: Stable enlargement BONES AND SOFT TISSUES: No acute findings. IMPRESSION: No interval change Signed by: Dr. Maki Jonas M.D. on 01/22/2018 6:09 AM
[2018-01-22 07:15] LABS: BASOPHILS # (AUTO) 0.1 (0.0-0.1); BASOPHILS % 1.1 % (0.0-1.0); EOSINOPHILS % 0.4 % (0.0-6.0); HEMATOCRIT 36.6 % (38.2-49.6); HEMOGLOBIN 11.4 g/dL (14.0-18.0); LYMPHOCYTES # (AUTO) 1.2 (1.0-3.2); LYMPHOCYTES % 11.1 % (18.0-39.1); MEAN CORPUSCULAR HEMOGLOBIN 26.6 pg (28-32); MEAN CORPUSCULAR HGB CONC 31.1 g/dL (31-35); MEAN CORPUSCULAR VOLUME 85.5 fL (81-99); MONOCYTES % 9.7 % (4.4-11.3); PLATELET COUNT 226 x10e3/uL (140-360); RED BLOOD COUNT 4.28 x10e6/uL (4.3-5.7); RED CELL DISTRIBUTION WIDTH 17.7 % (11.7-14.4)
[2018-01-22] MEDS: GENTAMICIN SULFATE 0.3% OP 5 ML BTL OP SCH ×3 (07:15→23:24)
[2018-01-22 07:33] LABS: ANION GAP 17.5 mmol/L (8-16); CALCIUM 8.9 mg/dL (8.4-10.2); CREATININE, SERUM 3.96 mg/dL (0.72-1.25); POTASSIUM 3.5 mmol/L (3.5-5.1)
[2018-01-22] MEDS: MUPIROCIN 2% OINT 22 GM TUBE TOP SCH (09:47)
[2018-01-22] MEDS ORDERED: SODIUM CHLORIDE 0.9% 250ML 250 ML ONE (10:12)
[2018-01-22] MEDS: FAMOTIDINE 20 MG/2 ML VIAL IV SCH (11:24)
[2018-01-22] MEDS: HEPARIN SOD (PORCINE) 5,000 UNIT/ML VIAL SC SCH ×2 (11:24→21:00)
[2018-01-22] MEDS: METOLAZONE 5 MG TAB PO SCH (11:25)
[2018-01-22] MEDS: VANCOMYCIN 1GM/NS 250 ML 250 ML IV SCH (11:25)
[2018-01-22] MEDS: MEROPENEM 500 MG VIAL IV SCH (11:25)
[2018-01-22] MEDS: NOREPINEPHRINE INJ 4MG/4ML 8 MG in DEXTROSE 5% 250ML 250 ML IV SCH (13:00)
[2018-01-22] MEDS ORDERED: ALBUMIN 5% 250ML IV ONE (14:00)
[2018-01-22] MEDS ORDERED: ALBUMIN 5% 500 ML IV ONE (14:45)
[2018-01-23] VITALS (72 sets, daily range): BP systolic 59–117; BP diastolic 26–93
[2018-01-23] MEDS: IBUPROFEN 100 MG/5 ML SUSP NG PRN ×2 (03:00→19:02)
[2018-01-23] MEDS: BALSAM PERU/CASTOR OIL 60 GM OINT...G. TP SCH (05:00)
[2018-01-23 05:11] LABS: BASOPHILS # (AUTO) 0.1 (0.0-0.1); EOSINOPHILS # (AUTO) 0.1 (0.0-0.4); EOSINOPHILS % 0.7 % (0.0-6.0); HEMATOCRIT 37.2 % (38.2-49.6); HEMOGLOBIN 11.5 g/dL (14.0-18.0); LYMPHOCYTES # (AUTO) 1.4 (1.0-3.2); LYMPHOCYTES % 13.8 % (18.0-39.1); MEAN CORPUSCULAR HEMOGLOBIN 26.8 pg (28-32); MEAN CORPUSCULAR HGB CONC 30.9 g/dL (31-35); MEAN CORPUSCULAR VOLUME 86.7 fL (81-99); MONOCYTES # (AUTO) 0.9 (0.2-0.8); MONOCYTES % 8.5 % (4.4-11.3); NEUTROPHILS # (AUTO) 7.6 (2.1-6.9); NEUTROPHILS % 75.1 % (38.7-80.0); PLATELET COUNT 228 x10e3/uL (140-360); RED BLOOD COUNT 4.29 x10e6/uL (4.3-5.7); RED CELL DISTRIBUTION WIDTH 17.8 % (11.7-14.4)
[2018-01-23 05:35] LABS: ANION GAP 13.4 mmol/L (8-16); CALCIUM 8.9 mg/dL (8.4-10.2); CREATININE, SERUM 3.96 mg/dL (0.72-1.25); POTASSIUM 3.4 mmol/L (3.5-5.1)
--- NOTE | 2018-01-23 05:49 | Diagnostic Imaging Report ---
EXAM: CHEST SINGLE (PORTABLE), AP 1 view INDICATION: Intubated COMPARISON: Previous day FINDINGS: Limited by motion artifact and portable technique LINES/TUBES: Stable endotracheal tube and nasal/orogastric tube and right subclavian line LUNGS: Bilateral opacities and central vascular congestion, grossly unchanged PLEURA: Probable layering pleural effusions HEART AND MEDIASTINUM: Stable enlargement IMPRESSION: Limited study without significant change Signed by: Dr Deanna Roasles MD on 01/23/2018 5:45 AM
[2018-01-23] MEDS: GENTAMICIN SULFATE 0.3% OP 5 ML BTL OP SCH ×3 (06:00→21:57)
[2018-01-23] MEDS: METOLAZONE 5 MG TAB PO SCH (08:28)
[2018-01-23] MEDS: VANCOMYCIN 1GM/NS 250 ML 250 ML IV SCH (08:28)
[2018-01-23] MEDS: FAMOTIDINE 20 MG/2 ML VIAL IV SCH (08:28)
[2018-01-23] MEDS: MUPIROCIN 2% OINT 22 GM TUBE TOP SCH (08:29)
[2018-01-23] MEDS: HEPARIN SOD (PORCINE) 5,000 UNIT/ML VIAL SC SCH (08:35)
[2018-01-23] MEDS: MEROPENEM 500 MG VIAL IV SCH (09:30)
[2018-01-23] MEDS ORDERED: POTASSIUM CHLORIDE 20MEQ/100ML 100 ML IV ONE (09:45)
[2018-01-23] MEDS: DEXTROSE 5% 1,000 ML IV SCH ×2 (10:15→19:45)
--- NOTE | 2018-01-23 15:31 | Diagnostic Imaging Report ---
PROCEDURE: A single AP view of the chest. COMPARISON: 01/23/2018 INDICATIONS: CHECK PLACEMENT OF ETT FINDINGS: Lines/tubes: Endotracheal tube has its tip about 3.5 cm above the daniel. Enteric tube passes below the diaphragm with its tip outside the [id number]. Right subclavian central venous catheter are tip appears to be in the right atrium, though it is not well seen. Lungs: Bilateral perihilar opacities, appearing worse than on the prior examination. Pleura: Small bilateral pleural effusions. Heart and mediastinum: Cardiomegaly, unchanged. Bones: No acute bony abnormality. IMPRESSION: Endotracheal tube has its tip about 3.5 cm above the daniel. Pulmonary edema and small bilateral pleural effusions, appearing slightly worse on the prior examination. Dictated by: Nadir Verdugo M.D. on 01/23/2018 at 15:32 Electronically approved by: Nadir Verdugo M.D. on 01/23/2018 at 15:32
[2018-01-23] MEDS ORDERED: NOREPINEPHRINE 8 MG/D5W 250 ML 250 ML ONE (17:42)
[2018-01-23] MEDS: NOREPINEPHRINE INJ 4MG/4ML 8 MG in DEXTROSE 5% 250ML 250 ML IV SCH (18:16)
[2018-01-23] MEDS ORDERED: SODIUM CHLORIDE 0.9% 250ML 250 ML ONE (19:02)
[2018-01-23] MEDS: NOREPINEPHRINE 8 MG/D5W 250 ML 250 ML IV SCH (19:15)
[2018-01-24] VITALS (63 sets, daily range): BP systolic 53–119; BP diastolic 30–100
[2018-01-24] MEDS: DEXMEDETOMIDINE HCL 200 MCG in SODIUM CHLORIDE 0.9% 50ML 48 ML IV PRN (03:00)
[2018-01-24] MEDS: GENTAMICIN SULFATE 0.3% OP 5 ML BTL OP SCH ×3 (05:15→21:14)
[2018-01-24 05:23] LABS: BASOPHILS # (AUTO) 0.1 (0.0-0.1); BASOPHILS % 0.7 % (0.0-1.0); EOSINOPHILS # (AUTO) 0.2 (0.0-0.4); HEMATOCRIT 36.6 % (38.2-49.6); HEMOGLOBIN 11.3 g/dL (14.0-18.0); LYMPHOCYTES # (AUTO) 1.6 (1.0-3.2); LYMPHOCYTES % 14.2 % (18.0-39.1); MEAN CORPUSCULAR HEMOGLOBIN 26.5 pg (28-32); MEAN CORPUSCULAR HGB CONC 30.9 g/dL (31-35); MEAN CORPUSCULAR VOLUME 85.7 fL (81-99); MONOCYTES # (AUTO) 0.8 (0.2-0.8); MONOCYTES % 7.3 % (4.4-11.3); NEUTROPHILS # (AUTO) 8.4 (2.1-6.9); NEUTROPHILS % 75.1 % (38.7-80.0); PLATELET COUNT 248 x10e3/uL (140-360); RED BLOOD COUNT 4.27 x10e6/uL (4.3-5.7); RED CELL DISTRIBUTION WIDTH 17.6 % (11.7-14.4)
[2018-01-24 05:40] LABS: ANION GAP 15.2 mmol/L (8-16); CALCIUM 8.6 mg/dL (8.4-10.2); CREATININE, SERUM 3.61 mg/dL (0.72-1.25); POTASSIUM 3.2 mmol/L (3.5-5.1)
[2018-01-24] MEDS: MUPIROCIN 2% OINT 22 GM TUBE TOP SCH (05:41)
[2018-01-24] MEDS: DEXTROSE 5% 1,000 ML IV SCH ×3 (05:45→20:02)
--- NOTE | 2018-01-24 05:48 | Diagnostic Imaging Report ---
CHEST SINGLE (PORTABLE), 01/24/2018 5:00 AM Technique: CHEST SINGLE (PORTABLE) Comparison: Previous day Clinical history: Intubated Findings: See Impression Impression: Limited by motion artifact and portable technique. 1. Lines/Tubes: Stable ET tube about 3.5 cm above the daniel, right central venous catheter and subdiaphragmatic NG tube. 2. Stable enlarged cardiomediastinal silhouette, bilateral pulmonary opacities and layering effusions. Signed by: Dr Deanna Rosales MD on 01/24/2018 5:44 AM
[2018-01-24] MEDS: VANCOMYCIN 1GM/NS 250 ML 250 ML IV SCH (08:46)
[2018-01-24] MEDS ORDERED: DEXTROSE 5% 1,000 ML IV STA (10:18)
[2018-01-24] MEDS ORDERED: POTASSIUM CHLORIDE 20MEQ/100ML 200 ML IV ONE (10:30)
[2018-01-24] MEDS: BALSAM PERU/CASTOR OIL 60 GM OINT...G. TP SCH (12:36)
[2018-01-24] MEDS: MEROPENEM 500 MG VIAL IV SCH (12:36)
[2018-01-24] MEDS: FAMOTIDINE 20 MG/2 ML VIAL IV SCH (12:36)
[2018-01-24] MEDS: METOLAZONE 5 MG TAB PO SCH (12:36)
--- NOTE | 2018-01-24 13:51 | Diagnostic Imaging Report ---
PROCEDURE:X-RAY ABDOMEN - KUB COMPARISON:None. INDICATIONS:NG TUBE PLACEMENT FINDINGS: See conclusion. CONCLUSION: 1. Limited exam. Interval placement of enteric tube, which has its distal tip projecting in the distal fundus. 2. Unchanged left retrocardiac opacity and obscuration of the left hemidiaphragm and left costophrenic angle, likely reflecting pleural effusion and associated atelectasis Tyson Rubi M.D. Dictated by: Tyson Rubi M.D. on 01/24/2018 at 13:52 Electronically approved by: Tyson Rubi M.D. on 01/24/2018 at 13:52
[2018-01-24] MEDS: DEXMEDETOMIDINE HCL 1,000 MCG in SODIUM CHLORIDE 0.9% 250ML 240 ML IV PRN (16:00)
[2018-01-24] MEDS ORDERED: BISMUTH SUBSALICYLATE 262 MG/15 ML 8OZ BTL PO PRN (17:45)
[2018-01-24] MEDS: NOREPINEPHRINE 8 MG/D5W 250 ML 250 ML IV SCH (19:15)
[2018-01-25] VITALS (95 sets, daily range): BP systolic 76–124; BP diastolic 30–97
[2018-01-25] MEDS: IBUPROFEN 100 MG/5 ML SUSP NG PRN (04:15)
[2018-01-25] MEDS: GENTAMICIN SULFATE 0.3% OP 5 ML BTL OP SCH (05:02)
[2018-01-25 06:47] LABS: ALBUMIN 2.1 g/dL (3.5-5.0); ALBUMIN/GLOBULIN RATIO 0.5 (0.8-2.0); ANION GAP 17.7 mmol/L (8-16); CALCIUM 8.6 mg/dL (8.4-10.2); CREATININE, SERUM 3.32 mg/dL (0.72-1.25); MAGNESIUM 1.7 MG/DL (1.3-2.1); PHOSPHORUS 3.3 MG/DL (2.3-4.7); POTASSIUM 3.7 mmol/L (3.5-5.1)
[2018-01-25] MEDS: BALSAM PERU/CASTOR OIL 60 GM OINT...G. TP SCH (09:18)
[2018-01-25 09:24] LABS: ABG HCO3 30 mmol/L (23-28); ABG PCO2 35 mmHg (41-51); ABG PH 7.54 (7.31-7.41); ABG PO2 108 mmHg (80-105)
[2018-01-25] MEDS ORDERED: ACETAMINOPHEN 1000 MG/100 ML IV STA (09:42)
[2018-01-25] MEDS ORDERED: MAGNESIUM SULFATE 2GM/50ML 50 ML IV ONE (09:45)
[2018-01-25] MEDS: VANCOMYCIN 1GM/NS 250 ML 250 ML IV SCH (10:00)
[2018-01-25] MEDS: FAMOTIDINE 20 MG/2 ML VIAL IV SCH (10:00)
[2018-01-25] MEDS: MEROPENEM 500 MG VIAL IV SCH (10:00)
--- NOTE | 2018-01-25 11:06 | Diagnostic Imaging Report ---
PROCEDURE:LIMITED ABDOMINAL ULTRASOUND COMPARISON:Ultrasound abdominal 01/15/2018. INDICATIONS:Ascites FINDINGS: Focused sonographic evaluation was performed to evaluate for the presence of ascites. Moderate to large amount of ascites was noted. CONCLUSION: Ascites. Dictated by: Link Hagen M.D. on 01/25/2018 at 11:07 Electronically approved by: Link Hagen M.D. on 01/25/2018 at 11:07
[2018-01-25] MEDS ORDERED: DIATRIZOATE MEGL/DIATRIZOA SOD 30 ML BTL PO ONE (11:13)
[2018-01-25] MEDS: DEXMEDETOMIDINE HCL 1,000 MCG in SODIUM CHLORIDE 0.9% 250ML 240 ML IV PRN ×2 (13:00→15:05)
--- NOTE | 2018-01-25 15:06 | Diagnostic Imaging Report ---
PROCEDURE: CT ABDOMEN AND PELVIS WITHOUT CONTRAST TECHNIQUE: The abdomen and pelvis were scanned utilizing a multidetector helical scanner from the diaphragm to the lesser trochanter after the oral administration of dilute Gastrografin. No IV contrast was administered due to low GFR. Coronal and sagittal multiplanar reformations were obtained. COMPARISON: [facility], [place], US ABDOMEN LIMITED, 01/15/2018, 19:30. [facility], US, US ABDOMEN LIMITED, 01/16/2018, 12:04. INDICATIONS: FEVER ASCITES FINDINGS: ABSENCE OF INTRAVENOUS CONTRAST DECREASES SENSITIVITY FOR DETECTION OF FOCAL LESIONS AND VASCULAR PATHOLOGY. LOWER THORAX: Moderate to marked cardiomegaly. Small bilateral pleural effusions, right greater than left, with associated compressive atelectasis of bilateral lower lobes.. HEPATOBILIARY: Nodularity of the hepatic contour. 2.5 x 2.8 cm fluid density simple cyst in hepatic segment IV/II (series 2, image 18). Ill-defined fluid density 1.0 cm simple cyst in hepatic segment VIII (series 2, image 25). Ill-defined 1.9 cm fluid density simple cyst in hepatic segment V (series 2 image 42). No other focal lesions. No biliary ductal dilation. Gallbladder is unremarkable. SPLEEN: No splenomegaly. PANCREAS: No focal masses or ductal dilatation. ADRENALS: Bilateral adrenal thickening, without discrete focal lesions. KIDNEYS/URETERS: No hydronephrosis or stones. 9.3 x 6.8 cm mostly exophytic simple cyst in the mid and inferior right kidney (series 2, image 55). A 1.3 x 1.1 cm rounded cortical lesion in the anterior interpolar left kidney has a measurement of 80 HU consistent with a hemorrhagic cyst. PELVIC ORGANS/BLADDER: Bladder is decompressed and there is a Dumas catheter in place. Enlarged prostate. PERITONEUM / RETROPERITONEUM: Moderate intra-abdominal and pelvic ascites. LYMPH NODES: No adenopathy. VESSELS: Minimal atherosclerotic calcification of the distal abdominal aorta GI TRACT: No bowel dilation or evidence of obstruction. A few scattered diverticula in the sigmoid colon, without diverticulitis. BONES AND SOFT TISSUES: No aggressive lytic lesion. Degenerative disc changes, predominantly at L5-S1. Generalized anasarca. IMPRESSION: 1. nodular contour of the liver likely reflecting cirrhosis. Moderate intra-abdominal and pelvic ascites. 2. Focal hepatic lesions consistent with simple cysts. 3. 9.3 cm simple right renal cyst. 1.3 cm left hemorrhagic cyst. 4. Generalized anasarca. Tyson Rubi M.D. Dictated by: Tyson Rubi M.D. on 01/25/2018 at 15:07 Electronically approved by: Tyson Rubi M.D. on 01/25/2018 at 15:07
[2018-01-25] MEDS ORDERED: ACETAMINOPHEN 1000 MG/100 ML IV PRN (18:15)
[2018-01-25] MEDS: NOREPINEPHRINE 8 MG/D5W 250 ML 250 ML IV SCH (19:15)
[2018-01-26] VITALS (90 sets, daily range): BP systolic 66–120; BP diastolic 43–103
[2018-01-26 06:52] LABS: ALBUMIN 1.9 g/dL (3.5-5.0); ALBUMIN/GLOBULIN RATIO 0.4 (0.8-2.0); ANION GAP 16.4 mmol/L (8-16); CALCIUM 8.2 mg/dL (8.4-10.2); CREATININE, SERUM 3.03 mg/dL (0.72-1.25); MAGNESIUM 1.9 MG/DL (1.3-2.1); PHOSPHORUS 4.6 MG/DL (2.3-4.7); POTASSIUM 3.4 mmol/L (3.5-5.1)
[2018-01-26 07:05] LABS: BASOPHILS # (AUTO) 0.1 (0.0-0.1); BASOPHILS % 0.9 % (0.0-1.0); EOSINOPHILS % 0.4 % (0.0-6.0); HEMATOCRIT 40.7 % (38.2-49.6); HEMOGLOBIN 12.6 g/dL (14.0-18.0); LYMPHOCYTES # (AUTO) 1.8 (1.0-3.2); MEAN CORPUSCULAR HEMOGLOBIN 26.3 pg (28-32); MEAN CORPUSCULAR VOLUME 84.8 fL (81-99); MONOCYTES # (AUTO) 0.9 (0.2-0.8); MONOCYTES % 9.5 % (4.4-11.3); NEUTROPHILS # (AUTO) 6.9 (2.1-6.9); NEUTROPHILS % 70.5 % (38.7-80.0); PLATELET COUNT 346 x10e3/uL (140-360); RED CELL DISTRIBUTION WIDTH 17.8 % (11.7-14.4)
[2018-01-26] MEDS ORDERED: POTASSIUM CHLORIDE 20MEQ/100ML 100 ML IV ONE (07:45)
[2018-01-26] MEDS ORDERED: SODIUM CHLORIDE 0.9% 250ML 250 ML ONE (08:15)
[2018-01-26] MEDS: MEROPENEM 500 MG VIAL IV SCH (08:42)
[2018-01-26] MEDS: FAMOTIDINE 20 MG/2 ML VIAL IV SCH (08:42)
[2018-01-26] MEDS: BALSAM PERU/CASTOR OIL 60 GM OINT...G. TP SCH (08:42)
[2018-01-26] MEDS: MICAFUNGIN SODIUM 100 ML IV SCH (11:30)
--- NOTE | 2018-01-26 14:22 | Diagnostic Imaging Report ---
PROCEDURE: A single AP view of the chest. COMPARISON: [facility] 01/24/2018. INDICATIONS: CENTRAL LINE PLACMENT FINDINGS: The lung apices are not included on the radiograph. Interval replacement of right internal jugular central venous catheter. The catheter tip is difficult to precisely identify secondary to body habitus and motion artifact; however, it likely lies within the low superior vena cava. Endotracheal tube and enteric tube are unchanged. Stable cardiomegaly, left pleural effusion, and interstitial pulmonary edema. IMPRESSION: Right internal jugular central venous catheter projects over the low superior vena cava. Endotracheal and enteric tube stable in position. Stable cardiomegaly, left pleural effusion, and interstitial pulmonary edema. Dictated by: Gaurav Ribeiro M.D. on 01/26/2018 at 14:23 Electronically approved by: Gaurav Ribeiro M.D. on 01/26/2018 at 14:23
--- NOTE | 2018-01-26 14:32 | Diagnostic Imaging Report ---
PROCEDURE:NON-TUNNELLED CVC CATH PLACMNT COMPARISON:Chest radiograph 01/24/2018. Preprocedure diagnosis: Bacteremia, concern for catheter related infection Post procedure diagnosis: Bacteremia, concern for catheter related infection COMPLICATIONS: No immediate MEDICATIONS: Lidocaine 1% for local anesthesia Sedation/anesthesia: None Blood products administered: None Implants/grafts: 7 Malay, 16 cm triple lumen central venous catheter Specimens: Existing triple-lumen central venous catheter, tip submitted for microbiologic analysis BLOOD LOSS: Minimal Condition at completion of procedure: Critical Disposition: Remain in ICU PROCEDURE: Informed consent was obtained from the next of kin and documented in the medical record. Preliminary sonographic evaluation of the right cervical region confirmed patency of the right internal jugular vein, with an existing right internal jugular central venous catheter. A suitable percutaneous approach was identified medial to the existing catheter. The right cervical region was then prepped and draped in the standard sterile fashion, with care taken to exclude the existing catheter from the sterile field. 1% lidocaine was infiltrated into the skin and subcutaneous tissues for local anesthesia. Then under continuous sonographic guidance, an 18 gauge singlewall needle was advanced into the right internal jugular vein. A permanent sonographic image was stored in the medical record. A 0.035 inch wire was advanced centrally with continuous cardiac rhythm monitoring. The needle was removed over the wire and the tract was dilated. Then a 7 Malay 16 cm triple lumen central venous catheter was advanced over the wire to full duct. The wire was removed. Each lumen was tested and showed adequate bidirectional flow. All 3 lumens were then flushed with sterile saline. The catheter was secured to skin with monofilament nylon suture and a sterile dressing was applied. The retention sutures for the existing, previously placed central venous catheter were then cut and the catheter was removed in total. Hemostasis was achieved with manual compression. The catheter tip was then placed in a specimen container and sent to the microbiology lab. Findings: Patent right internal jugular vein. CONCLUSION: Successful placement of a 7 Malay 16 cm triple lumen central venous catheter via a right internal jugular approach followed by removal of a previously placed central venous catheter, suspected to be the source of bacteremia. Post procedure chest radiograph will be obtained to confirm line positioning prior to use. Dictated by: Gaurav Ribeiro M.D. on 01/26/2018 at 14:32 Electronically approved by: Gaurav Ribeiro M.D. on 01/26/2018 at 14:32
--- NOTE | 2018-01-26 14:35 | Diagnostic Imaging Report ---
PROCEDURE:ULTRASOUND GUIDANCE FOR VASCULAR ACCESS COMPARISON:None. INDICATIONS:central line in rt IJV FINDINGS:Right internal jugular vein is noted to be patent. Ultrasound guidance was utilized for access for central line placement. CONCLUSION:Patent right internal jugular vein. Successful ultrasound guidance for central line placement. Dictated by: Gaurav Ribeiro M.D. on 01/26/2018 at 14:36 Electronically approved by: Gaurav Ribeiro M.D. on 01/26/2018 at 14:36
[2018-01-26] MEDS: NOREPINEPHRINE 8 MG/D5W 250 ML 250 ML IV SCH (15:30)
[2018-01-26] MEDS ORDERED: HYDROMORPHONE 20MG/ NS 100ML IV SCH (16:30)
[2018-01-26] MEDS ORDERED: HYDROMORPHONE 100 ML IV PRN (16:30)
[2018-01-26] MEDS: DEXMEDETOMIDINE HCL 1,000 MCG in SODIUM CHLORIDE 0.9% 250ML 240 ML IV PRN (21:21)
[2018-01-27] VITALS (92 sets, daily range): BP systolic 70–143; BP diastolic 31–109
[2018-01-27] MEDS: DEXMEDETOMIDINE HCL 1,000 MCG in SODIUM CHLORIDE 0.9% 250ML 240 ML IV PRN (03:00)
[2018-01-27 05:41] LABS: BASOPHILS # (AUTO) 0.1 (0.0-0.1); BASOPHILS % 0.6 % (0.0-1.0); EOSINOPHILS # (AUTO) 0.2 (0.0-0.4); EOSINOPHILS % 2.1 % (0.0-6.0); HEMATOCRIT 39.6 % (38.2-49.6); HEMOGLOBIN 12.3 g/dL (14.0-18.0); LYMPHOCYTES # (AUTO) 1.6 (1.0-3.2); LYMPHOCYTES % 17.6 % (18.0-39.1); MEAN CORPUSCULAR HEMOGLOBIN 26.3 pg (28-32); MEAN CORPUSCULAR HGB CONC 31.1 g/dL (31-35); MEAN CORPUSCULAR VOLUME 84.8 fL (81-99); MONOCYTES # (AUTO) 0.8 (0.2-0.8); MONOCYTES % 8.3 % (4.4-11.3); NEUTROPHILS # (AUTO) 6.4 (2.1-6.9); NEUTROPHILS % 71.1 % (38.7-80.0); PLATELET COUNT 345 x10e3/uL (140-360); RED BLOOD COUNT 4.67 x10e6/uL (4.3-5.7); RED CELL DISTRIBUTION WIDTH 17.8 % (11.7-14.4)
[2018-01-27 06:05] LABS: ANION GAP 16.4 mmol/L (8-16); CALCIUM 8.2 mg/dL (8.4-10.2); CREATININE, SERUM 2.68 mg/dL (0.72-1.25); POTASSIUM 3.4 mmol/L (3.5-5.1)
[2018-01-27] MEDS ORDERED: POTASSIUM CHLORIDE 20MEQ/100ML 100 ML IV ONE (07:30)
--- NOTE | 2018-01-27 08:20 | Diagnostic Imaging Report ---
EXAMINATION: CHEST SINGLE (PORTABLE) INDICATION: Intubated. Ascites. Dyspnea. COMPARISON: Chest x-ray 01/26/2018. 01/24/2018. FINDINGS: AP view TUBES and LINES: Right IJ central line with tip at the age of talar junction. Tip of the endotracheal tube is not well visualized but is above the daniel on previous x-ray. A nasogastric tube courses below the diaphragm. LUNGS: Lungs are not well inflated. Unchanged bibasilar atelectasis especially in the left. Increasing bilateral perihilar airspace opacities consistent with worsening pulmonary edema. PLEURA: No pleural effusion or pneumothorax. HEART AND MEDIASTINUM: Cardiac size is moderately enlarged, unchanged. BONES AND SOFT TISSUES: No acute osseous lesion. Soft tissues are unremarkable. UPPER ABDOMEN: No free air under the diaphragm. IMPRESSION: Worsening pulmonary edema. Signed by: Dr. Khanh Awad M.D. on 01/27/2018 8:16 AM
[2018-01-27] MEDS ORDERED: SODIUM CHLORIDE 0.9% 250ML 500 ML ONE (08:44)
[2018-01-27] MEDS ORDERED: MICAFUNGIN SODIUM 50 MG/50 ML BAG IV SCH (09:00)
[2018-01-27] MEDS: MIDODRINE 2.5 MG TAB PO SCH ×3 (09:06→16:23)
[2018-01-27] MEDS: BALSAM PERU/CASTOR OIL 60 GM OINT...G. TP SCH (09:07)
[2018-01-27] MEDS: FAMOTIDINE 20 MG/2 ML VIAL IV SCH (09:07)
[2018-01-27] MEDS: MEROPENEM 500 MG VIAL IV SCH (09:07)
[2018-01-27] MEDS: MICAFUNGIN SODIUM 100 ML IV SCH (09:07)
[2018-01-27 09:53] LABS: ABG PH 7.43 (7.31-7.41)
[2018-01-27 09:54] LABS: ABG HCO3 30 mmol/L (23-28); ABG PCO2 45 mmHg (41-51); ABG PO2 94 mmHg (80-105)
[2018-01-27] MEDS: VANCOMYCIN 1GM/NS 250 ML 250 ML IV SCH (11:08)
[2018-01-27] MEDS ORDERED: DEXTROSE 5% 1,000 ML IV ONE (15:30)
[2018-01-27] MEDS ORDERED: BUMETANIDE INJ 0.25MG/ML 4ML VIAL IV SCH ×2 (16:30→21:00)
[2018-01-27] MEDS: BUMETANIDE INJ 0.25MG/ML 4ML VIAL IV SCH (17:00)
[2018-01-27] MEDS: NOREPINEPHRINE 8 MG/D5W 250 ML 250 ML IV SCH (19:15)
[2018-01-27] MEDS: MIDAZOLAM HCL 2 MG/2 ML VIAL IV PRN (21:02)
[2018-01-27] MEDS ORDERED: BUMETANIDE INJ 0.25MG/ML 4ML VIAL IV ONE (22:00)
[2018-01-28] VITALS (96 sets, daily range): BP systolic 52–121; BP diastolic 29–96
[2018-01-28] MEDS: DEXMEDETOMIDINE HCL 1,000 MCG in SODIUM CHLORIDE 0.9% 250ML 240 ML IV PRN (00:35)
[2018-01-28] MEDS: BUMETANIDE INJ 0.25MG/ML 4ML VIAL IV SCH ×2 (05:14→17:00)
[2018-01-28] MEDS: MIDAZOLAM HCL 2 MG/2 ML VIAL IV PRN ×2 (05:14→22:34)
[2018-01-28 06:28] LABS: ALBUMIN 2.1 g/dL (3.5-5.0); ALBUMIN/GLOBULIN RATIO 0.5 (0.8-2.0); ANION GAP 14.3 mmol/L (8-16); CALCIUM 8.3 mg/dL (8.4-10.2); CREATININE, SERUM 2.9 mg/dL (0.72-1.25); POTASSIUM 3.3 mmol/L (3.5-5.1)
[2018-01-28] MEDS: MIDODRINE 2.5 MG TAB PO SCH ×3 (08:02→16:00)
[2018-01-28] MEDS: BALSAM PERU/CASTOR OIL 60 GM OINT...G. TP SCH (08:05)
[2018-01-28] MEDS: FAMOTIDINE 20 MG/2 ML VIAL IV SCH (08:07)
[2018-01-28] MEDS ORDERED: POTASSIUM CHLORIDE IV ONE (08:30)
[2018-01-28] MEDS ORDERED: STERILE WATER IV ONE (08:30)
[2018-01-28] MEDS: MICAFUNGIN SODIUM 100 ML IV SCH (09:00)
[2018-01-28] MEDS ORDERED: BUMETANIDE INJ 0.25MG/ML 4ML VIAL IV ONE (17:00)
[2018-01-28] MEDS ORDERED: POTASSIUM CHLORIDE IV SCH (17:30)
[2018-01-28] MEDS ORDERED: STERILE WATER IV SCH (17:30)
[2018-01-28] MEDS: NOREPINEPHRINE 8 MG/D5W 250 ML 250 ML IV SCH (19:39)
[2018-01-29] VITALS (86 sets, daily range): BP systolic 63–126; BP diastolic 42–95
[2018-01-29] MEDS: MIDAZOLAM HCL 2 MG/2 ML VIAL IV PRN (03:42)
[2018-01-29] MEDS: BUMETANIDE INJ 0.25MG/ML 4ML VIAL IV SCH ×2 (04:08→18:24)
[2018-01-29] MEDS: DEXMEDETOMIDINE HCL 1,000 MCG in SODIUM CHLORIDE 0.9% 250ML 240 ML IV PRN ×2 (04:08→21:59)
[2018-01-29 06:13] LABS: BASOPHILS # (AUTO) 0.1 (0.0-0.1); BASOPHILS % 0.7 % (0.0-1.0); EOSINOPHILS # (AUTO) 0.1 (0.0-0.4); EOSINOPHILS % 1.5 % (0.0-6.0); HEMATOCRIT 33.8 % (38.2-49.6); HEMOGLOBIN 10.4 g/dL (14.0-18.0); LYMPHOCYTES # (AUTO) 1.1 (1.0-3.2); LYMPHOCYTES % 12.5 % (18.0-39.1); MEAN CORPUSCULAR HEMOGLOBIN 26.6 pg (28-32); MEAN CORPUSCULAR HGB CONC 30.8 g/dL (31-35); MEAN CORPUSCULAR VOLUME 86.4 fL (81-99); MONOCYTES # (AUTO) 0.6 (0.2-0.8); MONOCYTES % 6.7 % (4.4-11.3); NEUTROPHILS # (AUTO) 6.7 (2.1-6.9); NEUTROPHILS % 77.8 % (38.7-80.0); PLATELET COUNT 352 x10e3/uL (140-360); RED BLOOD COUNT 3.91 x10e6/uL (4.3-5.7); RED CELL DISTRIBUTION WIDTH 18.1 % (11.7-14.4)
--- NOTE | 2018-01-29 06:36 | Diagnostic Imaging Report ---
CHEST SINGLE (PORTABLE), 01/29/2018 7:00 AM Technique: CHEST SINGLE (PORTABLE) Comparison: Previous day Clinical history: Shortness of breath Findings: Right costophrenic angle is excluded. Motion artifact. Impression: 1. Lines/Tubes: Removal of ET tube, NG tube. Stable right IJ CVC with tip not well-visualized. 2. Stable enlarged cardiac silhouette with diffuse opacities, favor underlying edema with bibasilar atelectasis and layering fluid. Signed by: Dr Deanna Rosales MD on 01/29/2018 6:33 AM
[2018-01-29 06:44] LABS: INR 1.23; PROTHROMBIN TIME 14.6 seconds (11.9-14.5)
[2018-01-29 06:45] LABS: PARTIAL THROMBOPLASTIN TIME 28.9 seconds (23.8-35.5)
[2018-01-29 06:55] LABS: ALBUMIN 2.3 g/dL (3.5-5.0); ALBUMIN/GLOBULIN RATIO 0.5 (0.8-2.0); ANION GAP 16.4 mmol/L (8-16); CALCIUM 8.6 mg/dL (8.4-10.2); CREATININE, SERUM 2.87 mg/dL (0.72-1.25); POTASSIUM 3.4 mmol/L (3.5-5.1)
[2018-01-29] MEDS: MIDODRINE 2.5 MG TAB PO SCH ×3 (08:00→18:24)
[2018-01-29] MEDS: MICAFUNGIN SODIUM 100 ML IV SCH (09:00)
[2018-01-29] MEDS: MEROPENEM 500 MG VIAL IV SCH (09:00)
[2018-01-29] MEDS: FAMOTIDINE 20 MG/2 ML VIAL IV SCH (09:00)
[2018-01-29] MEDS ORDERED: MEROPENEM 500MG 500 MG in SODIUM CHLORIDE 0.9% 50ML 50 ML IV SCH (09:00)
[2018-01-29] MEDS ORDERED: POTASSIUM CHLORIDE 20 MEQ in DEXTROSE 5% 1,000 ML IV SCH (10:45)
--- NOTE | 2018-01-29 11:50 | Diagnostic Imaging Report ---
PROCEDURE:US GUIDED PARACENTESIS COMPARISON:None. INDICATIONS:Ascites FINDINGS:The procedure was performed at the bedside in the intensive care unit. Focused sonographic evaluation of the abdomen demonstrated a moderate amount of ascites. The majority of the fluid was noted in the right upper quadrant. A safe approach was determined. The right upper quadrant was prepped and draped in the usual sterile fashion. 1% lidocaine was infused into the subcutaneous tissues for local anesthesia. Utilizing direct sonographic guidance, the needle was advanced into the peritoneal space. The catheter was attached to closed vacuum suction drainage. 4300 cc of ascitic fluid was aspirated. Upon completion of the procedure, the needle was removed. No hematoma was visualized. The patient tolerated the procedure well. There were no immediate complications. The patient remained in the intensive care unit in stable unchanged condition. The fluid was sent to the laboratory for further evaluation. CONCLUSION:Successful ultrasound-guided paracentesis. Dictated by: Link Hagen M.D. on 01/29/2018 at 11:52 Electronically approved by: Link Hagen M.D. on 01/29/2018 at 11:52
[2018-01-29] MEDS: BALSAM PERU/CASTOR OIL 60 GM OINT...G. TP SCH (15:00)
[2018-01-29] MEDS: VANCOMYCIN 1GM/NS 250 ML 250 ML IV SCH (15:01)
--- NOTE | 2018-01-29 16:29 | Diagnostic Imaging Report ---
PROCEDURE:X-RAY MODIFIED BARIUM SWALLOW COMPARISON:None. INDICATIONS:Not provided. DISCUSSION:Fluoroscopic examination was performed in conjunction with speech pathology, during swallowing of a variety of thin and thick liquid consistencies. Fluoroscopy time: 2 min, 31 sec Total dose: 8.28 mGy CONCLUSION:No penetration or aspiration. Please see the report from speech pathology for complete details. Dictated by: Jose Luis Crews M.D. on 01/29/2018 at 16:31 Electronically approved by: Jose Luis Crews M.D. on 01/29/2018 at 16:31
[2018-01-29] MEDS: NOREPINEPHRINE 8 MG/D5W 250 ML 250 ML IV SCH (19:15)
[2018-01-30] VITALS (34 sets, daily range): BP systolic 81–169; BP diastolic 61–108
[2018-01-30] MEDS: LORAZEPAM INJ 2 MG/ML VIAL IV PRN (04:55)
[2018-01-30] MEDS: BUMETANIDE INJ 0.25MG/ML 4ML VIAL IV SCH ×2 (05:00→17:10)
[2018-01-30 06:08] LABS: BASOPHILS # (AUTO) 0.1 (0.0-0.1); BASOPHILS % 0.6 % (0.0-1.0); EOSINOPHILS % 0.5 % (0.0-6.0); HEMATOCRIT 38.7 % (38.2-49.6); HEMOGLOBIN 12.1 g/dL (14.0-18.0); LYMPHOCYTES # (AUTO) 0.8 (1.0-3.2); LYMPHOCYTES % 9.9 % (18.0-39.1); MEAN CORPUSCULAR HEMOGLOBIN 26.2 pg (28-32); MEAN CORPUSCULAR HGB CONC 31.3 g/dL (31-35); MEAN CORPUSCULAR VOLUME 83.9 fL (81-99); MONOCYTES # (AUTO) 0.6 (0.2-0.8); MONOCYTES % 7.8 % (4.4-11.3); NEUTROPHILS # (AUTO) 6.5 (2.1-6.9); NEUTROPHILS % 80.6 % (38.7-80.0); PLATELET COUNT 409 x10e3/uL (140-360); RED BLOOD COUNT 4.61 x10e6/uL (4.3-5.7); RED CELL DISTRIBUTION WIDTH 18.9 % (11.7-14.4)
[2018-01-30 06:22] LABS: ANION GAP 18.2 mmol/L (8-16); CALCIUM 8.8 mg/dL (8.4-10.2); CREATININE, SERUM 3.01 mg/dL (0.72-1.25); POTASSIUM 3.2 mmol/L (3.5-5.1)
[2018-01-30] MEDS: MIDODRINE 2.5 MG TAB PO SCH ×3 (08:30→17:10)
[2018-01-30] MEDS: MICAFUNGIN SODIUM 100 ML IV SCH (09:00)
[2018-01-30] MEDS: MEROPENEM 500 MG VIAL IV SCH (09:00)
[2018-01-30] MEDS: FAMOTIDINE 20 MG/2 ML VIAL IV SCH (09:00)
[2018-01-30] MEDS: POTASSIUM CHLORIDE 20 MEQ in DEXTROSE 5% 1,000 ML IV SCH ×2 (10:45→20:50)
[2018-01-30] MEDS: BALSAM PERU/CASTOR OIL 60 GM OINT...G. TP SCH (11:45)
[2018-01-31] VITALS (15 sets, daily range): BP systolic 99–129; BP diastolic 68–100
[2018-01-31] MEDS: LORAZEPAM INJ 2 MG/ML VIAL IV PRN ×2 (03:27→13:18)
[2018-01-31] MEDS: BUMETANIDE INJ 0.25MG/ML 4ML VIAL IV SCH ×3 (04:41→18:00)
[2018-01-31 06:49] LABS: ALBUMIN 2.6 g/dL (3.5-5.0); ALBUMIN/GLOBULIN RATIO 0.6 (0.8-2.0); ANION GAP 22.8 mmol/L (8-16); CALCIUM 8.9 mg/dL (8.4-10.2); CREATININE, SERUM 3.83 mg/dL (0.72-1.25); PHOSPHORUS 5.2 MG/DL (2.3-4.7); POTASSIUM 3.8 mmol/L (3.5-5.1)
[2018-01-31] MEDS: MIDODRINE 2.5 MG TAB PO SCH ×3 (08:00→17:14)
[2018-01-31] MEDS: VANCOMYCIN 1GM/NS 250 ML 250 ML IV SCH (09:17)
[2018-01-31] MEDS: FAMOTIDINE 20 MG/2 ML VIAL IV SCH (09:17)
[2018-01-31] MEDS: MICAFUNGIN SODIUM 100 ML IV SCH (09:18)
[2018-01-31] MEDS ORDERED: ETOMIDATE 40 MG/ 20ML VIAL IV ONE (09:46)
[2018-01-31] MEDS ORDERED: SUCCINYLCHOLINE CHLORIDE 20 MG/ML 10ML VIAL ONE (09:46)
[2018-01-31] MEDS ORDERED: WATER STERILE 10 ML VIAL ONE (09:46)
[2018-01-31] MEDS ORDERED: VECURONIUM BROMIDE FOR INJ 20 MG VIAL ONE (09:46)
[2018-01-31] MEDS: BALSAM PERU/CASTOR OIL 60 GM OINT...G. TP SCH (09:50)
[2018-01-31] MEDS: MEROPENEM 500 MG VIAL IV SCH (10:10)
[2018-01-31] MEDS ORDERED: METOPROLOL TARTRATE INJ 1 MG/ML VIAL IV SCH (17:00)
[2018-01-31] MEDS: POTASSIUM CHLORIDE 20 MEQ in DEXTROSE 5% 1,000 ML IV SCH (19:18)
== END 2018-01-31 22:48 | DRG 853 ==
LOC: ER 18:35 → ERHOLD 20:32 → IMCU 22:54 → ICU 01-16 00:53 → MED/SURG 01-30 15:42 → IMCU 01-30 19:20
PROVIDERS: ADMIT Family Medicine; ATTEND Family Medicine
PROC: 5A1945Z Respiratory Ventilation, 24-96 Consecutive Hours (ICD-10-PCS; principal; 2018-01-15)
PROC: 0BH17EZ Insertion of Endotracheal Airway into Trachea, Via Natural or Artificial Opening (ICD-10-PCS; 2018-01-15)
PROC: 0W9G3ZX Drainage of Peritoneal Cavity, Percutaneous Approach, Diagnostic (ICD-10-PCS; 2018-01-16)
PROC: 02HV33Z Insertion of Infusion Device into Superior Vena Cava, Percutaneous Approach (ICD-10-PCS; 2018-01-16)
PROC: B5181ZA Fluoroscopy of Superior Vena Cava using Low Osmolar Contrast, Guidance (ICD-10-PCS; 2018-01-16)
PROC: 02PY03Z Removal of Infusion Device from Great Vessel, Open Approach (ICD-10-PCS; 2018-01-26)
PROC: 02HV33Z Insertion of Infusion Device into Superior Vena Cava, Percutaneous Approach (ICD-10-PCS; 2018-01-26)
PROC: B5181ZA Fluoroscopy of Superior Vena Cava using Low Osmolar Contrast, Guidance (ICD-10-PCS; 2018-01-26)
PROC: 0W9G3ZX Drainage of Peritoneal Cavity, Percutaneous Approach, Diagnostic (ICD-10-PCS; 2018-01-29)
DX: A41.9 Sepsis, unspecified organism (principal); J96.01 Acute respiratory failure with hypoxia; R65.21 Severe sepsis with septic shock; N17.9 Acute kidney failure, unspecified; G93.41 Metabolic encephalopathy; I50.23 Acute on chronic systolic (congestive) heart failure; R18.8 Other ascites; J96.02 Acute respiratory failure with hypercapnia; N18.4 Chronic kidney disease, stage 4 (severe); I13.0 Hypertensive heart and chronic kidney disease with heart failure and stage 1 through stage 4 chronic kidney disease, or unspecified chronic kidney disease; K74.60 Unspecified cirrhosis of liver; Z68.35 Body mass index [BMI] 35.0-35.9, adult; M10.9 Gout, unspecified; N28.1 Cyst of kidney, acquired; K75.81 Nonalcoholic steatohepatitis (NASH); E87.6 Hypokalemia; Z66 Do not resuscitate; E66.01 Morbid (severe) obesity due to excess calories
CPT/HCPCS: 31500; 36415; 36556; 36600; 49083; 51700; 71045; 74018; 74176; 74230; 74470; 76705; 76770; 76937; 80048; 80053; 80202; 81001; 81015; 82103; 82105; 82140; 82390; 82550; 82553; 82805; 82945; 82948; 83615; 83735; 83880; 83970; 84100; 84132; 84166; 84484; 85025; 85610; 85730; 86039; 86255; 86803; 87040; 87070; 87071; 87075; 87086; 87186; 87205; 89051; 93005; 93306; 94003; 94640; 94660; 96360; 96361; 96365; 96366; 96367; 96372; 96374; 96375; 96376; 97139; 99284; C1751; J0330; J1644; J1940; J2060; J2185; J2248; J2250; J2543; J2765; J3370; J3480; J7050; J7070